=== PATIENT | female | born 1955 | race Caucasian/White ===

== ENCOUNTER 2018-09-11 09:38 | Outpatient (CLI) | payer MEDICARE, OTHER ==
--- NOTE | 2018-09-11 10:04 | RAD ---
EXAM: Abdomen one view: HISTORY: Renal calculi COMPARISON: CT, 08/25/2018 FINDINGS: No evidence for large or small bowel obstruction. No free intraperitoneal air . Large irregular left renal calculus measuring 1.6 x 2.3 cm. IMPRESSION: Large left renal calculus.
[2018-09-11 10:39] LABS: Bilirubin Negative (Negative); Blood, Urine Moderate (Negative); Clarity CLOUDY (Clear); Glucose, Urine (Dipstick) 100 mg/dL (Negative); Leukocyte Small (Negative); Nitrite Negative (Negative); Protein, Urine (Dipstick) Trace mg/dL (Neg-Trace); Urobilinogen 0.2 mg/dL (0.2-1.0)
[2018-09-11 10:40] LABS: Hemoglobin A1c 8.5 % (4.0-6.0)
[2018-09-11 10:41] LABS: Bacteria/HPF None Seen HPF (None Seen); Hyaline Casts/LPF 4-6 HYALINE CAST LPF (0-3 Hyaline); Pathc Cast-AUWi Flag 1.08 (0-2.49); RBC/HPF 21-50 HPF (0-3)
[2018-09-11 10:52] LABS: Anion Gap 13 mmol/L (10-20); BUN (Urea Nitrogen) 17 mg/dL (9.8-20.1); Calc. Creatinine Clearance 0 mL/min (70-130); Calcium 9.8 mg/dL (7.8-10.44); Carbon Dioxide 24 mmol/L (23-31); Chloride 104 mmol/L (98-107); Estimated GFR-MDRD 45; Glucose 236 mg/dL (80-115); Potassium 3.9 mmol/L (3.5-5.1); Sodium 137 mmol/L (136-145); Uric Acid 5.7 mg/dL (2.6-6.0)
== END 2018-09-11 09:39 | disposition home or self-care (01) ==
LOC: RAD 09:38
PROVIDERS: ATTEND Urology
DX: N20.0 Calculus of kidney (principal); G89.29 Other chronic pain; M54.5 Low back pain; E11.9 Type 2 diabetes mellitus without complications
CPT/HCPCS: 74018; 80048; 81001; 83036; 83970; 84550; 87086

== ENCOUNTER 2018-10-04 09:30 | Inpatient (IN) | payer MEDICARE ==
[2018-10-17] MEDS ORDERED: Sodium Chloride 0.9% 10 ML ONE (12:56)
[2018-10-17] MEDS ORDERED: Dextrose 50% Abboject 50 ML SYRINGE SLOW IVP PRN (12:59)
[2018-10-17] MEDS ORDERED: diphenhydrAMINE 50 MG/ML VIAL IVP PRN (12:59)
[2018-10-17] MEDS ORDERED: Dextrose 5% in Water 1,000 ML IV PRN (12:59)
[2018-10-17] MEDS ORDERED: Morphine 4 MG/ML VIAL SLOW IVP PRN (12:59)
[2018-10-17] MEDS ORDERED: Mag-Al 1200 mg/1200 mg/30 ML UDCUP PO PRN (12:59)
[2018-10-17] MEDS ORDERED: hydrALAZINE 20 MG/ML VIAL SLOW IVP PRN ×2 (12:59)
[2018-10-17] MEDS ORDERED: Bisacodyl 10 MG SUPP PR PRN (12:59)
[2018-10-17] MEDS ORDERED: HYDROcodone/Acetaminophen 5/325 mg Tablet PO PRN ×2 (12:59)
[2018-10-17] MEDS ORDERED: Promethazine HCl 25 MG SUPP PR PRN (12:59)
[2018-10-17] MEDS ORDERED: traMADol HCl 50 MG TAB PO PRN (13:08)
[2018-10-17] MEDS: Morphine 4 MG/ML VIAL SLOW IVP PRN ×3 (13:57→21:06)
[2018-10-17] MEDS: Insulin Regular 300 UNITS/3 ML VIAL SC PRN ×2 (14:06→17:25)
[2018-10-17 14:47] LABS: #Lymphocytes 0.9 thou/uL (1.20-3.40); #Monocytes 0.3 thou/uL (0.11-0.59); #Neutrophils 7.5 thou/uL (1.40-6.50); %Basophils 0.2 % (0.0-1.0); %Eosinophils 0.5 % (0.0-10.0); %Lymphocytes 10.2 % (21.0-51.0); %Monocytes 3.1 % (0.0-10.0); Hemoglobin 13.7 g/dL (12.0-16.0); Mean Corpuscular HGB CONC 32.9 g/dL (32.0-36.0); Mean Corpuscular Hemoglobin 28.2 pg (27.0-31.0); Mean Corpuscular Volume 85.7 fL (78.0-98.0); Mean Platelet Volume 8.4 fL (7.4-10.4); Platelet Count 253 thou/uL (130-400); RBC Distribution Width 13.1 % (11.5-14.5); Red Blood Cell (RBC) Count 4.88 mill/uL (4.20-5.40); White Blood Cell (WBC) Count 8.7 thou/uL (4.8-10.8)
[2018-10-17] MEDS: Sodium Chloride 0.9% 1,000 ML IV SCH (15:00)
--- NOTE | 2018-10-17 15:01 | CON ---
DATE OF CONSULTATION: PRIMARY CARE: Dr. Karime Urbina. HISTORY OF PRESENT ILLNESS: Ms. Ayala is a 62-year-old female, G1, P1, referred for renal lithiasis with history of chronic mid bilateral lower abdominal discomfort for years. She has had back pain, surgery back in 1993, typically ambulates with a cane. History of IgM deficiency has propensity for recurrent respiratory infections per the patient. She underwent workup for her back pain, demonstrating incidental stone, which prompted CT by Primary Care. CT demonstrated a large left stone burden, dimensions as below. She underwent cardiology workup, stress test negative, presents for percutaneous nephrolithotomy. She underwent percutaneous access earlier today, however, this is suboptimal access. I informed the patient that we will need a new access tomorrow, which we will attempt to place intraoperatively. Challenging nature providing antibiotic therapy to this patient as she has multiple allergies, most of antibiotics cause nausea. She states that she has had left flank pain with the percutaneous access; however, is agreed to leave it in situ for now. She does not desire further intervention today. PAST MEDICAL HISTORY: Includes; 1. Diabetes. 2. Hyperlipidemia. 3. Hypertension. 4. Hypothyroidism. 5. Restless legs. 6. Selective IgM deficiency. 7. Recurrent respiratory infections. 8. Neuropathy. 9. GERD. 10. Depression. 11. Anxiety. SURGICAL HISTORY: 1. Tonsillectomy. 2. in 1978. 3. Back surgery in 1993. 4. Bunionectomy in 1999. 5. Umbilical hernia repair in 2002. 6. Bilateral wrist repair, three finger surgery in 2016. FAMILY HISTORY: Positive for colon cancer. SOCIAL HISTORY: Former smoker, quit years ago. Previous recreational drug use in the 70s, marijuana. Denies IV drug abuse. ALLERGIES: AZITHROMYCIN, CAUSES NAUSEA; PENICILLIN, CHILDHOOD REACTION; CEFACLOR, CAUSES RASH; BIAXIN, CAUSES RASH AND SEVERE NAUSEA. CURRENT MEDICATIONS: Include; 1. Atorvastatin. 2. Biotene. 3. Dulcolax. 4. Ciprofloxacin 400 mg IV on-call. 5. She did receive 500 of Levaquin just now. 6. Colace 100 mg b.i.d. 7. Escitalopram 40 mg one p.o. daily. 8. Pepcid. 9. Neurontin 200 mg. 10. Hydralazine p.r.n. 11. She is on an insulin injection b.i.d. 12. Levothyroxine. 13. Loratadine. 14. Morphine 2-4 mg. 15. Pantoprazole, Protonix. 16. Promethazine. 17. Tramadol 50 mg one p.o. t.i.d. p.r.n. 18. Zolpidem. PHYSICAL EXAMINATION: VITAL SIGNS: Stable. GENERAL: The patient currently appears somewhat groggy as she recently came back from Interventional Radiology, has nausea. HEENT: Grossly unremarkable. HEART: Regular rate. LUNGS: Clear. ABDOMEN: Morbidly obese, protuberant. No rigidity. No rebound. Left percutaneous access is secured to her back. NEUROLOGIC: No gross focal deficits; however, she does ambulate with a cane due to chronic right groin discomfort. EXTREMITIES: No cyanosis, clubbing, or edema. No calf tenderness. : Demonstrates severe atrophic vaginitis. PERTINENT LABORATORY DATA: Hemoglobin A1c of 8.5. White count 6, hemoglobin 12 , and platelets 247. Coagulation profile is negative. Creatinine 1.0. Urine culture negative. Cardiac clearance is in chart with recent stress test demonstrating no evidence of perfusion defect, EF of 60%, Dr. Akins. CT demonstrating: Left renal pelvic stone measuring 2.5 x 1.3 x 2.7 cm, additional 2 lower pole to mid pole renal calculi, 8 mm in the mid pole, lower pole x3. Stones measuring 8 mm, 6 mm, 7 mm respectively. Stone to skin distance 13 cm. Stone is seen on scout sniper. IMPRESSION AND PLAN: Ms. Ayala is a 62-year-old female with history of large renal pelvic stone, lower pole stone moiety as above. As she had a percutaneous access today, in which the perc access is down the course of the ureter; however, it is a suboptimal access as it encroaches to infundibulum. She has had postoperative nausea as she has difficulty tolerating most antibiotics due to severe nausea. She requests ciprofloxacin instead of Levaquin. I will switch preop antibiotic regimen as she requests. She is n.p.o. after midnight for percutaneous access re-attempt, percutaneous nephrolithotomy, nephrostomy tube. As previous, we had discussed risks and complications of the procedure in detail including, but not limited to: Bleeding, pain, infection, sepsis, possible injury to adjacent structures such as major vasculature, bowel contents, spleen, need for blood transfusion, PE, DVT, perioperative morbidity and mortality, possible secondary procedure. She has been fully informed that she may require staged intervention due to lower pole stone moiety as well as it may be difficult with percutaneous access. Possible rare need for severe hemorrhage requiring embolization nephrectomy reviewed. She will be optimized, with IV fluids. We will treat her nausea with Phenergan and Zofran, ciprofloxacin on-call to OR. Type and cross for 2 units. Job ID: [id number] [facility]
[2018-10-17 15:06] LABS: Anion Gap 16 mmol/L (10-20); BUN (Urea Nitrogen) 22 mg/dL (9.8-20.1); Calc. Creatinine Clearance 79 mL/min (70-130); Calcium 10.2 mg/dL (7.8-10.44); Carbon Dioxide 23 mmol/L (23-31); Chloride 107 mmol/L (98-107); Estimated GFR-MDRD 48; Glucose 219 mg/dL (80-115); Potassium 3.9 mmol/L (3.5-5.1); Sodium 142 mmol/L (136-145)
[2018-10-17] MEDS: HumaLOG 300 UNITS/3 ML VIAL SC SCH (17:21)
[2018-10-17] MEDS: Promethazine 25 MG TAB PO PRN (17:22)
[2018-10-17] MEDS: Gabapentin 100 MG CAP PO SCH (20:44)
[2018-10-17] MEDS: Insulin Glargine 45 UNITS in Pre-Filled Syringe SC SCH (20:45)
[2018-10-17] MEDS: Docusate 100 MG CAP PO SCH (20:45)
[2018-10-17] MEDS: Famotidine/PF 20 mg/2ml Vial SLOW IVP SCH (20:45)
[2018-10-17] MEDS: rOPINIRole HCl 2 MG TAB PO SCH (20:46)
[2018-10-17] MEDS ORDERED: Zolpidem Tartrate 5 MG TAB PO SCH (21:00)
[2018-10-17] MEDS ORDERED: (Ropinirole Hcl [Ropinirole Er] 2 MG) PO SCH (21:00)
[2018-10-17] MEDS ORDERED: INSULIN DETEMIR 45 UNIT SQ SCH (21:00)
[2018-10-18 05:19] VITALS: BP 118/57
[2018-10-18] MEDS: Sodium Chloride 0.9% 1,000 ML IV SCH ×4 (05:35→20:50)
[2018-10-18] MEDS ORDERED: Midazolam HCl 2 mg/2 ml Vial ONE (06:59)
[2018-10-18] MEDS ORDERED: Fentanyl 250 MCG/5 ML VIAL ONE (06:59)
[2018-10-18] MEDS ORDERED: Iothalamate Meglumine 60% 50 ML VIAL FS ONE (07:14)
[2018-10-18 07:16] LABS: #Eosinphils 0.1 thou/uL (0.0-0.7); #Lymphocytes 1.5 thou/uL (1.20-3.40); #Monocytes 0.5 thou/uL (0.11-0.59); #Neutrophils 6.7 thou/uL (1.40-6.50); %Basophils 0.1 % (0.0-1.0); %Eosinophils 0.7 % (0.0-10.0); %Lymphocytes 16.7 % (21.0-51.0); %Monocytes 5.8 % (0.0-10.0); %Neutrophils 76.7 % (42.0-75.0); Hemoglobin 11.5 g/dL (12.0-16.0); Mean Corpuscular HGB CONC 33.4 g/dL (32.0-36.0); Mean Corpuscular Hemoglobin 28.5 pg (27.0-31.0); Mean Corpuscular Volume 85.4 fL (78.0-98.0); Mean Platelet Volume 7.9 fL (7.4-10.4); Platelet Count 211 thou/uL (130-400); RBC Distribution Width 12.9 % (11.5-14.5); Red Blood Cell (RBC) Count 4.04 mill/uL (4.20-5.40); White Blood Cell (WBC) Count 8.7 thou/uL (4.8-10.8)
[2018-10-18 07:34] LABS: Anion Gap 10 mmol/L (10-20); BUN (Urea Nitrogen) 15 mg/dL (9.8-20.1); Calc. Creatinine Clearance 81 mL/min (70-130); Calcium 9.1 mg/dL (7.8-10.44); Carbon Dioxide 26 mmol/L (23-31); Chloride 107 mmol/L (98-107); Estimated GFR-MDRD 50; Glucose 147 mg/dL (80-115); Potassium 3.8 mmol/L (3.5-5.1); Sodium 139 mmol/L (136-145)
[2018-10-18] MEDS: Bisoprolol Fumarate 5 MG TAB PO SCH (08:01)
[2018-10-18] MEDS: HumaLOG 300 UNITS/3 ML VIAL SC SCH ×3 (08:01→17:22)
[2018-10-18] MEDS: Levothyroxine 150 MCG TAB PO SCH (08:01)
[2018-10-18] MEDS: Atorvastatin Calcium 40 MG TAB PO SCH (08:01)
[2018-10-18] MEDS: Lactinex Tablet PO SCH (08:02)
[2018-10-18] MEDS: Insulin Glargine 45 UNITS in Pre-Filled Syringe SC SCH ×2 (08:02→20:49)
[2018-10-18] MEDS: Escitalopram Oxalate 20 mg Tablet PO SCH (08:02)
[2018-10-18] MEDS: Docusate 100 MG CAP PO SCH ×2 (08:02→20:48)
[2018-10-18] MEDS: Famotidine/PF 20 mg/2ml Vial SLOW IVP SCH ×2 (08:02→20:45)
[2018-10-18] MEDS: Stress 600 With Zinc 1 TAB PO SCH (08:02)
[2018-10-18] MEDS: Loratadine 10 MG TAB PO SCH (08:02)
[2018-10-18] MEDS ORDERED: BIOTIN 5 MG PO SCH (09:00)
[2018-10-18] MEDS ORDERED: CHROMIUM PO SCH (09:00)
[2018-10-18] MEDS ORDERED: Naloxone HCl 0.4 mg/ml Vial IV PRN (11:53)
[2018-10-18] MEDS ORDERED: diphenhydrAMINE 50 MG/ML VIAL IM PRN (11:53)
[2018-10-18] MEDS ORDERED: diphenhydrAMINE 50 MG/ML VIAL IVP PRN (11:53)
[2018-10-18] MEDS ORDERED: Zolpidem Tartrate 5 MG TAB PO PRN (11:53)
[2018-10-18] MEDS ORDERED: Morphine CADD 1 MG/ML CADD IVPB PRN (11:53)
[2018-10-18] MEDS ORDERED: diphenhydrAMINE 25 MG CAP PO PRN (11:53)
[2018-10-18] MEDS ORDERED: Communication Order-Pharmacy FS PRN (12:00)
[2018-10-18] MEDS ORDERED: Oxybutynin 5 MG TAB PO SCH (12:15)
[2018-10-18] MEDS ORDERED: Fentanyl 100 MCG/2 ML VIAL ONE ×2 (12:16→13:07)
[2018-10-18 13:00] LABS: #Eosinphils 0.1 thou/uL (0.0-0.7); #Monocytes 0.5 thou/uL (0.11-0.59); %Eosinophils 0.6 % (0.0-10.0); %Lymphocytes 7.7 % (21.0-51.0); %Monocytes 3.7 % (0.0-10.0); Mean Corpuscular HGB CONC 32.4 g/dL (32.0-36.0); Mean Corpuscular Hemoglobin 28.3 pg (27.0-31.0); Mean Corpuscular Volume 87.4 fL (78.0-98.0); Mean Platelet Volume 7.7 fL (7.4-10.4); Platelet Count 217 thou/uL (130-400); Red Blood Cell (RBC) Count 4.24 mill/uL (4.20-5.40); White Blood Cell (WBC) Count 12.5 thou/uL (4.8-10.8)
[2018-10-18] MEDS ORDERED: Morphine Sulfate 100 MG in Dextrose 5% in Water 98 ML IV SCH (13:05)
[2018-10-18 13:18] LABS: Anion Gap 11 mmol/L (10-20); BUN (Urea Nitrogen) 14 mg/dL (9.8-20.1); Calc. Creatinine Clearance 76 mL/min (70-130); Calcium 8.4 mg/dL (7.8-10.44); Carbon Dioxide 20 mmol/L (23-31); Chloride 110 mmol/L (98-107); Estimated GFR-MDRD 46; Glucose 202 mg/dL (80-115); Potassium 4.1 mmol/L (3.5-5.1); Sodium 137 mmol/L (136-145)
--- NOTE | 2018-10-18 13:18 | OP ---
DATE OF PROCEDURE: 10/18/2018 PREOPERATIVE DIAGNOSES: 1. A 62-year-old female with history of multiple left renal calculi: Renal pelvic stone measuring 2.7 x 2.5 x 1.3 cm left mid pole stone measuring 8 mm x 2 stones , left lower pole stone x3, 8 mm, 6 mm, 7 mm respectively. Hounsfield unit over 900 to 1000. 2. Morbid obesity. 3. History of diabetes. POSTOPERATIVE DIAGNOSES: 1. A 62-year-old female with history of multiple left renal calculi: Renal pelvic stone measuring 2.7 x 2.5 x 1.3 cm left mid pole stone measuring 8 mm x 2 stones , left lower pole stone x3, 8 mm, 6 mm, 7 mm respectively. Hounsfield unit over 900 to 1000. 2. Morbid obesity. 3. History of diabetes. PROCEDURE PERFORMED: Cystoscopy, left retrograde pyelogram, catheterization of the left ureter, left nephrostogram, nephroureteral Malecot 24-Vincentian catheter placement, left percutaneous nephrolithotomy, lithotripsy of large renal pelvic stone. ANESTHESIA: General. COMPLICATIONS: None apparent. DISPOSITION: To recovery room in stable condition. ESTIMATED BLOOD LOSS: About 3 to 500 mL. IV FLUIDS: 1800 mL. INTRAOPERATIVE FINDINGS: Very dense left renal pelvic stone. INDICATIONS FOR PROCEDURE AND HISTORY: Ms. Ayala is a 62-year-old pleasant female with history of morbid obesity, chronic lower back pain, diabetes, selective IgM deficiency, presented for evaluation of large left renal pelvic stone. She underwent cardiac clearance and presents today for left percutaneous nephrolithotomy of her large renal pelvic stone. We had discussed various options including ESWL, ureteroscopy, laser lithotripsy, PCNL. Given significant stone burden, density , I advised regarding PCNL. Other options were also discussed and offered and she desired to proceed with percutaneous nephrolithotomy. She is in full understanding that she will require likely stage intervention given the stone size, location, her body habitus, and stone moiety. Risks and complications including, but not limited to: Bleeding, pain, infection, sepsis, injury to adjacent organ such as bowel contents, spleen, major vasculature, infection, pneumonia, PE, DVT, perioperative morbidity, mortality, possible intractable bleeding requiring renal artery embolization, nephrectomy. Questions were encouraged and answered and she desired to proceed. DESCRIPTION OF PROCEDURE: After an informed consent was signed, the patient was taken to the operating room, placed in a dorsal lithotomy position with the genital area prepped and draped in the usual surgical sterile fashion. The patient was provided IV antibiotics. Bilateral ELIAS hose SCDs placed. After general endotracheal anesthesia was administered, the patient was intubated, broad- spectrum antibiotics provided and placed in dorsal lithotomy position. We performed the cystoscopy first as her pre-existing nephroureteral access was suboptimal. A 21-Vincentian cystoscope was utilized for cystoscopy, which demonstrated normal bladder mucosa. The UOs were identified in normal anatomical location. An open-ended catheter was utilized to intubate the left UO, and we performed the retrograde pyelogram, which demonstrated the previously placed nephroureteral tube in the distal ureter opacified the collecting system. Open-ended catheter was passed to the level of the proximal ureter, left in situ and a Artis catheter was placed, 20-Vincentian 10 mL, and the open-ended catheter was sutured to her Artis, so we may perform a retrograde pyelogram intraoperatively. Subsequently, we transitioned the patient on OSI table in a prone position with all pressure points padded and protected at all times. Dr. Clark then came in and took the old nephrostomy access out and we performed retrograde pyelogram concomitantly while opacifying the collecting system and obtained a new access. Due to a large renal pelvic stone causing partial obstruction of her calices, we were only able to initially opacify an upper calyx, which is suboptimal due to proximity of the spleen and the lower pole anterior calyceal stone and anterior mid pole calyx. As these were not ideal for percutaneous approach for the renal pelvic stone, we further opacified dilating her collecting system in a retrograde manner, and subsequently was able to opacify a posterior mid pole calyx. Dr. Clark obtained the access. Please see his operative note for further details. I took over the case once the two wires down the ureter to the level of the bladder was placed in situ. A NephroMax balloon dilator 30-Vincentian balloon was placed under fluoroscopic guidance just proximal to the level of the stone. Balloon dilatation was observed intraoperatively under fluoroscopic guidance. After appropriate dilatation, a 30-Vincentian clear nephro sheath was then placed over the inflating balloon. Balloon was then subsequently deflated and nephroscopy was performed. The stone was visualized; however, there was some mucosal overgrowth and there was surrounding parenchyma. We appeared to be in the mid pole where she does have those 8 mm stones. I extracted these with atraumatic graspers. Subsequently, I was able to visualize the stone; however, the angled was challenging. In a nontraumatic fashion, we engaged the stone with a clear sheath. Using a [employer] pneumatic and ultrasonic probe, we lithotripsied the stone and evacuated them. The stone was very dense in nature. It took quite a bit of time to laser the stone; however, we were able to make the progress and lithotripsy the renal pelvic stone entirely. There were some fragments that were left and we extracted these. My new stone fragments did migrate to the UPJ, we were able to basket and grasp these with nontraumatic graspers. There were minute stone fragments that were too small to basket or grab and we did make clearance of the large renal pelvic stone. Some of the renal pelvic moiety does have a limb of the stone traversing into the mid pole. I was able to see the edge of it; however, given the angle and oozing from the mucosa, I was unable to extract or laser lithotripsy, a residual stone burden, I believe in the mid pole. As we did make progress of her renal pelvic stone, decision was made to terminate the case as the residual stones were not amenable to treating in this treatment with this percutaneous access. With the clear sheath in place, we placed a 24-Vincentian re- entry Malecot nephroureteral tube. This was deployed with a Malecot in the renal pelvis. Antegrade nephrostogram demonstrated no significant extravasation of the contrast and contrast was seen down the course of the ureter. Subsequently, we removed the clear sheath, all wires. The nephrostomy tube was sutured to skin using 0 silk. Attached to gravity bag. The patient was extubated, transported to the recovery room in stable condition. Job ID: [id number] [facility]
[2018-10-18] MEDS ORDERED: Furosemide 20 MG/2 ML VIAL ONE (13:54)
[2018-10-18] MEDS: Albuterol Sulfate 2.5 mg/3 ml Neb NEB SCH ×2 (14:05→18:18)
--- NOTE | 2018-10-18 14:10 | RAD ---
SINGLE VIEW CHEST: Date: 10/18/18 COMPARISON: None. HISTORY: Status post PCNL. FINDINGS: Single view of the chest shows normal sized cardiomediastinal silhouette. There is bilateral perihila r fullness. There is no evidence of consolidation, mass, pneumothorax, or pleural effusion. IMPRESSION: No evidence of acute cardiopulmonary disease. POS: CET
--- NOTE | 2018-10-18 14:28 | SPC ---
EXAM: Antegrade pyelogram and nephrostomy tract dilatation PROVIDED CLINICAL HISTORY: Left renal calculi. TECHNIQUE: After informed consent was obtained, the hip patient was placed on the operating room table in the pr one position. General endotracheal anesthesia was performed by the anesthesiology department. The existing left nephroureteral catheter and surrounding area were meticulously prepped and draped in us ua sterile fashion. A nephrostogram was obtained through the existing left nephroureteral catheter after the catheter was withdrawn. CT exam performed one day ago demonstrated that the catheter traversed a posterior calyx and entered an anterior calyx. The catheter was withdrawn and attempts to access the existing p osterior calyx access was unsuccessful. As result, the catheter was removed, and then the collecting system was distended via the retrograde catheter. A posterior mid calyx was identified. Ac cess via the posterior calyx with a 22-gauge Chiba needle was performed. Contrast injection confirms placement in the calyx. The needle was exchanged over a 0.018 inch guidewire for a 6 [place] AccuStick sheath with stiff inner cannula and dilator. Contrast injection confirms placement within the collecting system and proximal ureter. The AccuStick sheath was exchanged over a 0.035 inch Amplatz guidewire for an 8 [place] followed by 10 [place] tissue dilators, and a dual lumen 10 [place] catheter was placed into the proximal ureter. A second 0.035 inch Amplatz guidewire was placed. Catheter was removed, and nephrostomy tract dilatatio n was performed with a 30 [place] nephrostomy tract dilatation balloon. A 30 [place] sheath was placed. The nephroscope was placed by Dr. Chatman, and the calculus was visualized. Nephrolithoto my was then performed by Dr. Chatman. At the termination of the procedure, a large caliber catheter was placed in the right renal collecting system, and contrast injection confirms placement. Fluoroscopy: Total fluoroscopy time is 17 minutes with total dose of 560 mGy. IMPRESSION: 1. Left renal calculi with staghorn type calculus in the left renal pelvis. 2. Technically successful left renal collecting system access via a posterior calyx with successful p lacement of guidewires into the distal left ureter. 3. Final provided image demonstrates a large caliber catheter serving as a nephrostomy tube within th e left renal collecting system with tip in the region of the left renal pelvis.
[2018-10-18] MEDS ORDERED: Iopamidol 300 61% 100 ML VIAL FS ONE (15:17)
[2018-10-18] MEDS: Oxybutynin 5 MG TAB PO SCH ×2 (15:51→20:49)
--- NOTE | 2018-10-18 16:23 | PDOC.FPRHP ---
- History of Present Illness History of Present Illness: CONSULT NOTE 62 yo F with PMH IDDM2, HTN, selective IgM def, hypothyroid was admitted for large nephrolithiasis. She just returned from PACU from presumed percutaneous nephrolithotomy. Op note has not yet resulted. She denies any current nausea. She recently received morphine and that has helped her pain. She just feels tired and thirsty. - Allergies/Adverse Reactions Allergies Allergy/AdvReac Type Severity Reaction Status Date / Time azithromycin [From Zithromax] Allergy Verified 10/16/18 12:09 cefaclor [From Ceclor] Allergy Verified 10/16/18 12:09 ciprofloxacin [From Cipro] Allergy GI UPSET Verified 10/17/18 08:11 clarithromycin [From Biaxin] Allergy Verified 10/16/18 12:09 hydrocodone Allergy extemee Verified 10/17/18 12:51 nausea levofloxacin [From Levaquin] Allergy extreme Verified 10/17/18 12:50 nausea Penicillins Allergy extreme Verified 10/17/18 12:50 nausea - Home Medications Medication Instructions Recorded Confirmed Type Agilease 2 tab PO DAILY 10/16/18 10/17/18 History Alpha Lipoic Acid 30 mg PO DAILY 10/16/18 10/17/18 History Atorvastatin Calcium [Lipitor] 40 mg PO DAILY 10/16/18 10/17/18 History Bifidobacterium Infantis 1 capsule PO DAILY 10/16/18 10/17/18 History [Digestive Probiotic] Biotin [Meribin] 5 mg PO DAILY 10/16/18 10/17/18 History Bisoprolol Fumarate [Zebeta] 5 mg PO DAILY 10/16/18 10/17/18 History Cromium 200 mcg PO DAILY 10/16/18 10/17/18 History Escitalopram Oxalate 40 mg PO DAILY 10/16/18 10/17/18 History Gabapentin 200 mg PO HS 10/16/18 10/17/18 History Insulin Aspart [Novolog Flexpen] 15 unit SQ ASDIR 10/16/18 10/17/18 History Insulin Detemir [Levemir Flextouch] 45 unit SQ BID 10/16/18 10/17/18 History Levothyroxine [Synthroid] 150 mcg PO DAILY 10/16/18 10/17/18 History Loratadine [Claritin] 10 mg PO DAILY 10/16/18 10/17/18 History Mv-Mn/Folic Acid/Vit K/[id number] 1 each PO DAILY 10/16/18 10/17/18 History [Alive Once Daily Women 50 Plus] Pantoprazole [Protonix] 40 mg PO DAILY 10/16/18 10/17/18 History Vitamin B Complex [B Complex] 1 tablet PO DAILY 10/16/18 10/17/18 History Zolpidem Tartrate [Ambien] 5 mg PO HS 10/16/18 10/17/18 History rOPINIRole HCl [Ropinirole ER] 2 mg PO HS 10/16/18 10/17/18 History traMADol HCl [Tramadol HCl] 50 mg PO TID PRN 10/16/18 10/17/18 History - History PMHx: IDDM2, HTN, HLD, hypothyroid, RLS, selective IgM deficiency, GERD, anxiety , depression, neuropathy PSHx: tonsillectomy, 1978, back surgery 1993, bunionectomy 1999, umbilical hernia repair 2002, bilateral wrist repair, 3 trigger finger release 2015 FHx: DM, CAD in multiple family members. Sister, colon cancer. Social: Denies tobacco use now or in past. Denies alcohol or drug use. - Review of Systems General: reports: fatigue. denies: fever/chills Respiratory: denies: cough, shortness of breath Cardiovascular: denies: palpitation, edema Gastrointestinal: denies: nausea, vomiting, diarrhea Genitourinary: denies: incontinence, dysuria Skin: denies: rashes, lesions Musculoskeletal: reports: pain, tenderness Neurological: denies: numbness, weakness Psychological: reports: anxiety, depression - Vital signs BP: 127/70 HR: 83 RR: 18 Pox: 95% on RA Wt: 98 kg - Physical Exam Constitutional: NAD, awake, alert and oriented, well developed (obese) HEENT: normocephalic and atraumatic, grossly normal vision, grossly normal hearing, MMM Heart: RRR, normal S1/S2, no murmurs/rubs/gallops, no edema Lungs: CTAB, no respiratory distress Abdomen: soft, non-tender -Musculoskeletal: bandages in place on lower back Neurological: no focal deficit Skin: good turgor Heme/Lymphatic: no unusual bruising or bleeding Psychiatric: normal mood and affect FMR H&P: Results - Labs Result Diagrams: 10/19/18 04:29 10/19/18 04:29 Lab results: WBC 12.5 thou/uL (4.8-10.8) H 10/18/18 12:52 Hgb 12.0 g/dL (12.0-16.0) 10/18/18 12:52 Hct 37.0 % (36.0-47.0) 10/18/18 12:52 MCV 87.4 fL (78.0-98.0) 10/18/18 12:52 Plt Count 217 thou/uL (130-400) 10/18/18 12:52 Neutrophils % 88.0 % (42.0-75.0) H 10/18/18 12:52 Sodium 137 mmol/L (136-145) 10/18/18 12:52 Potassium 4.1 mmol/L (3.5-5.1) 10/18/18 12:52 Chloride 110 mmol/L (98-107) H 10/18/18 12:52 Carbon Dioxide 20 mmol/L (23-31) L 10/18/18 12:52 BUN 14 mg/dL (9.8-20.1) 10/18/18 12:52 Creatinine 1.18 mg/dL (0.6-1.1) H 10/18/18 12:52 Glucose 202 mg/dL (80-115) H 10/18/18 12:52 Calcium 8.4 mg/dL (7.8-10.44) 10/18/18 12:52 FMR H&P: A/P - Problem List (1) Nephrolithiasis Current Visit: Yes Status: Acute (2) Diabetes Current Visit: Yes Status: Chronic Code(s): E11.9 - TYPE 2 DIABETES MELLITUS WITHOUT COMPLICATIONS (3) HTN (hypertension) Current Visit: Yes Status: Chronic Code(s): I10 - ESSENTIAL (PRIMARY) HYPERTENSION (4) HLD (hyperlipidemia) Current Visit: Yes Status: Chronic Code(s): E78.5 - HYPERLIPIDEMIA, UNSPECIFIED (5) Hypothyroid Current Visit: Yes Status: Chronic Code(s): E03.9 - HYPOTHYROIDISM, UNSPECIFIED (6) RLS (restless legs syndrome) Current Visit: Yes Status: Chronic (7) Selective IgM deficiency Current Visit: Yes Status: Chronic Code(s): D80.4 - SELECTIVE DEFICIENCY OF IMMUNOGLOBULIN M [IGM] (8) GERD (gastroesophageal reflux disease) Current Visit: Yes Status: Chronic Code(s): K21.9 - GASTRO-ESOPHAGEAL REFLUX DISEASE WITHOUT ESOPHAGITIS (9) Neuropathy Current Visit: Yes Status: Chronic Code(s): G62.9 - POLYNEUROPATHY, UNSPECIFIED (10) Anxiety Current Visit: Yes Status: Chronic Code(s): F41.9 - ANXIETY DISORDER, UNSPECIFIED - Plan 62 yo F is admitted to urology for large nephrolithiasis and we are consulted for medical management. Nephrolithiasis, POD #0 s/p percutaneous nephrolitotomy - Urology managing - Patient on cipro IDDM2 - continue home insulin regimen when patient tolerating PO intake - Takes levemir 45u BID, Novolog 15, 15, 20 units with meals - A1c 8.5 - will monitor accuchecks and adjust as needed HTN - Home bisoprolol continued - pt reports her PCP was trying to transition to toher medication but pt has been taking bisoprolol only for past couple weeks CKD3 - at baseline, avoid nephrotoxic medications HLD - continue atorvastatin Hypothyroid - continue synthroid RLS - continue home ropinirole, ambien Depression/anxiety - continue home escitalopram GERD - continue home protonix Chronic back pain - takes tramadol at home, inpatient pain management per urology FMR H&P: Upper Level - Plan Date/Time: 10/18/18 [id number] I, [], have evaluated this patient and agree with findings/plan as outlined by internet programmer resident. Pertinent changes/additions are listed here. Addendum - Attending - Attending Attestation Date/Time: 10/19/18 1379 I personally evaluated the patient and discussed the management with Dr. Morse on 10/18. I agree with the History, Examination, Assessment and Plan documented above with any addition or exceptions noted below. Manage comorbidities, likely just o/n stay in [facility].
[2018-10-18] MEDS: Acetaminophen 1,000 MG in Premix Bag 1 BAG IVPB SCH (18:10)
[2018-10-18] MEDS: traMADol HCl 50 MG TAB PO PRN (20:37)
[2018-10-18] MEDS: Gabapentin 100 MG CAP PO SCH (20:45)
[2018-10-18] MEDS: rOPINIRole HCl 2 MG TAB PO SCH (20:49)
[2018-10-19] MEDS: Albuterol Sulfate 2.5 mg/3 ml Neb NEB SCH ×4 (00:03→18:31)
[2018-10-19 04:37] LABS: #Monocytes 0.6 thou/uL (0.11-0.59); %Basophils 0.1 % (0.0-1.0); %Eosinophils 0.3 % (0.0-10.0); %Lymphocytes 10.1 % (21.0-51.0); %Monocytes 6.5 % (0.0-10.0); Hemoglobin 11.3 g/dL (12.0-16.0); Mean Corpuscular Hemoglobin 29.4 pg (27.0-31.0); Mean Corpuscular Volume 86.3 fL (78.0-98.0); Mean Platelet Volume 7.5 fL (7.4-10.4); Platelet Count 233 thou/uL (130-400); Red Blood Cell (RBC) Count 3.83 mill/uL (4.20-5.40); White Blood Cell (WBC) Count 9.7 thou/uL (4.8-10.8)
[2018-10-19 05:00] LABS: Anion Gap 11 mmol/L (10-20); BUN (Urea Nitrogen) 11 mg/dL (9.8-20.1); Calc. Creatinine Clearance 75 mL/min (70-130); Calcium 8.3 mg/dL (7.8-10.44); Carbon Dioxide 23 mmol/L (23-31); Chloride 109 mmol/L (98-107); Estimated GFR-MDRD 45; Glucose 151 mg/dL (80-115); Potassium 3.7 mmol/L (3.5-5.1); Sodium 139 mmol/L (136-145)
[2018-10-19] MEDS ORDERED: Lidocaine Viscous Sol 2% 15 ml UD Cup SSW SCH (05:00)
[2018-10-19] MEDS: Oxybutynin 5 MG TAB PO SCH ×3 (05:35→20:30)
[2018-10-19] MEDS: Sodium Chloride 0.9% 1,000 ML IV SCH ×2 (05:36→13:05)
[2018-10-19] MEDS: Levothyroxine 150 MCG TAB PO SCH ×2 (06:01→20:32)
--- NOTE | 2018-10-19 06:34 | PDOC.FM ---
- Subjective Subjective: Denies nausea, vomiting since being on Cipro. Reports throat irritation and pain. Had a fever overnight. Says she did not sleep well last night and feels tired. - Objective Vital Signs & Weight: Vital Signs (12 hours) Temp Pulse Ox 10/19/18 06:06 100.8 F H 10/19/18 03:44 95 10/19/18 03:34 100.5 F H 10/18/18 23:56 99.0 F 10/18/18 20:00 93 L 10/18/18 19:25 99.0 F Weight Weight 104.4 kg Most Recent Monitor Data Heart Rate from ECG 104 NIBP 104/52 NIBP BP-Mean 69 Respiration from ECG 18 SpO2 94 I&O: 10/17/18 10/18/18 10/19/18 06:59 06:59 06:59 Intake Total 750 1293 Output Total 1200 655 Balance -450 638 Result Diagrams: 10/19/18 04:29 10/19/18 04:29 Phys Exam - Physical Examination Constitutional: NAD Respiratory: clear to auscultation bilateral (exam limited due to body habitus) Cardiovascular: RRR, no significant murmur Gastrointestinal: soft, positive bowel sounds Musculoskeletal: no edema Neurological: non-focal Psychiatric: normal affect Skin: cap refill <2 seconds Dx/Plan (1) Nephrolithiasis Status: Acute (2) Diabetes Code(s): E11.9 - TYPE 2 DIABETES MELLITUS WITHOUT COMPLICATIONS Status: Chronic (3) HTN (hypertension) Code(s): I10 - ESSENTIAL (PRIMARY) HYPERTENSION Status: Chronic (4) HLD (hyperlipidemia) Code(s): E78.5 - HYPERLIPIDEMIA, UNSPECIFIED Status: Chronic (5) Hypothyroid Code(s): E03.9 - HYPOTHYROIDISM, UNSPECIFIED Status: Chronic (6) RLS (restless legs syndrome) Status: Chronic (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 Nephrolithiasis, POD #1 s/p percutaneous nephrolitotomy - Urology managing - Patient on cipro - repeat CT this am showed less stone burden IDDM2 - continue home insulin regimen when patient tolerating PO intake - Takes levemir 45u BID, Novolog 15, 15, 20 units with meals - A1c 8.5 - will monitor accuchecks, FBG this am 146 HTN - Home bisoprolol continued - pt reports her PCP was trying to transition to other medication but pt has been taking bisoprolol only for past couple weeks CKD3 - at baseline, avoid nephrotoxic medications HLD - continue atorvastatin Hypothyroid - continue synthroid RLS - continue home ropinirole, ambien Depression/anxiety - continue home escitalopram GERD - continue home protonix Chronic back pain - takes tramadol at home, inpatient pain management per urology Per urology, likely plan to transition to floor tomorrow. Will continue to monitor for fever, likely due to atelectasis but may consider CXR if recurs. Addendum - Attending - Attending Attestation Date/Time: 10/19/18 3087 I personally evaluated the patient and discussed the management with Dr. Morse I agree with the History, Examination, Assessment and Plan documented above with any addition or exceptions noted below. Consulted for medical management T2DM and HTN well controlled- continue current management Fever- normal WBC and on cipro. Most likely secondary to atelectasis- extensive discussion about sitting up and using IS multiple times per hour. If fever recurs will check CXR and procal.
--- NOTE | 2018-10-19 07:33 | PRG ---
DATE OF SERVICE: 10/19/2018 SUBJECTIVE: The patient is sleeping, easily arousable, Denies chills. Per nursing staff, the patient refused her breathingh treatment last night. OBJECTIVE: VITAL SIGNS: T-max of 100.8, blood pressure 102/54, heart rate 93- 104. I's and O's, 1293 in, output is 655. She is positive 600 mL. Nephrostomy tube , 80 mL. Artis, 575. Both caliber of the urine is sedrick red tinged to transparent red with no clots. HEART: Regular. LUNGS: Clear. ABDOMEN: Morbidly obese. Nephrostomy tube dressing changed. No significant flank ecchymosis. Dressing reapplied. PERTINENT LABORATORY DATA: White count 9.7, hemoglobin stable at 11.3, platelet 233. Creatinine 1.2, near her baseline. IMPRESSION: Ms. Ayala is a 62-year-old female with history of large left stone burden, postop day #1. 1. Left percutaneous nephrolithotomy. 2. Past medical history of diabetes. 3. IgM deficiency. 4. Chronic back pain. 5. History of recurrent respiratory infections. PLAN: The patient unable to tolerate Levaquin due to severe nausea, currently tolerating ciprofloxacin 400 mg IV without significant issues of nausea. We were able to make significant progress in her stone burden. However, she has residual stone burden in the lower pole. We will obtain a CT stone protocol staging today. Advised regarding aggressive IS breathing treatments as advised. PT has been ordered for walking program out of bed. Importance of increased activity, pulmonary toilet discussed with the patient in detail. Pending improvement of hematuria, clinical status, she was advised regarding cysto left stent, nephrostomy tube removal prior to discharge, perhaps Tuesday. Continue current management for now. The patient will most likely be able to transfer out of the step-down unit tomorrow to surgical floor. Appreciate [facility] following. Job ID: [id number] [facility]
[2018-10-19] MEDS ORDERED: Acetaminophen 500 MG TAB PO PRN (08:45)
--- NOTE | 2018-10-19 08:56 | CT ---
CT Stone Protocol History: Lithotripsy. Nephrostomy. Comparison: CT abdomen and pelvis August 25, 2018 Findings: Mild atelectasis both lung bases. No pericardial effusion. Nephroureteral catheter is situ with distal tip at the distal left ureter. The size of the pelvic sto ne has markedly decreased and rest of the pelvis with the dominant fragment measuring up to 1.3 cm, previously over 2.5 cm. A smaller 2 x 4, 4 x 5, and 4 x 4 ureter calculus sits at the interpolar and inferior left renal calyx. Noncontrast evaluation of the liver and spleen are unremarkable. High density layering contrast withi n the gallbladder from vicarious excretion. No significant perirenal hematoma. Small fat-containing umbilical hernia. Impression: Marked interval size decrease of the dominant left renal pelvic calculus with decrease nu mber of the inferior and interpolar collecting system smaller calculi.
[2018-10-19] MEDS: Stress 600 With Zinc 1 TAB PO SCH (09:47)
[2018-10-19] MEDS: traMADol HCl 50 MG TAB PO PRN (09:48)
[2018-10-19] MEDS: Escitalopram Oxalate 20 mg Tablet PO SCH (09:52)
[2018-10-19] MEDS: Atorvastatin Calcium 40 MG TAB PO SCH (09:52)
[2018-10-19] MEDS: Bisoprolol Fumarate 5 MG TAB PO SCH (09:52)
[2018-10-19] MEDS: Insulin Glargine 45 UNITS in Pre-Filled Syringe SC SCH ×2 (09:53→20:32)
[2018-10-19] MEDS: Loratadine 10 MG TAB PO SCH ×2 (09:53→20:31)
[2018-10-19] MEDS: Docusate 100 MG CAP PO SCH ×2 (09:53→20:30)
[2018-10-19] MEDS: Lactinex Tablet PO SCH (09:53)
[2018-10-19] MEDS: Famotidine/PF 20 mg/2ml Vial SLOW IVP SCH ×2 (09:53→20:30)
--- NOTE | 2018-10-19 10:28 | SPC ---
EXAM: Antegrade pyelogram and nephrostomy tract dilatation PROVIDED CLINICAL HISTORY: Left renal calculi. TECHNIQUE: After informed consent was obtained, the hip patient was placed on the operating room table in the pr one position. General endotracheal anesthesia was performed by the anesthesiology department. The existing left nephroureteral catheter and surrounding area were meticulously prepped and draped in us ua sterile fashion. A nephrostogram was obtained through the existing left nephroureteral catheter after the catheter was withdrawn. CT exam performed one day ago demonstrated that the catheter traversed a posterior calyx and entered an anterior calyx. The catheter was withdrawn and attempts to access the existing p osterior calyx access was unsuccessful. As result, the catheter was removed, and then the collecting system was distended via the retrograde catheter. A posterior mid calyx was identified. Ac cess via the posterior calyx with a 22-gauge Chiba needle was performed. Contrast injection confirms placement in the calyx. The needle was exchanged over a 0.018 inch guidewire for a 6 [place] AccuStick sheath with stiff inner cannula and dilator. Contrast injection confirms placement within the collecting system and proximal ureter. The AccuStick sheath was exchanged over a 0.035 inch Amplatz guidewire for an 8 [place] followed by 10 [place] tissue dilators, and a dual lumen 10 [place] catheter was placed into the proximal ureter. A second 0.035 inch Amplatz guidewire was placed. Catheter was removed, and nephrostomy tract dilatatio n was performed with a 30 [place] nephrostomy tract dilatation balloon. A 30 [place] sheath was placed. The nephroscope was placed by Dr. Chatman, and the calculus was visualized. Nephrolithoto my was then performed by Dr. Chatman. At the termination of the procedure, a large caliber catheter was placed in the right renal collecting system, and contrast injection confirms placement. Fluoroscopy: Total fluoroscopy time is 17 minutes with total dose of 560 mGy. IMPRESSION: 1. Left renal calculi with staghorn type calculus in the left renal pelvis. 2. Technically successful left renal collecting system access via a posterior calyx with successful p lacement of guidewires into the distal left ureter. 3. Final provided image demonstrates a large caliber catheter serving as a nephrostomy tube within th e left renal collecting system with tip in the region of the left renal pelvis. Transcribed Date/Time: 10/19/2018 10:28 AM
--- NOTE | 2018-10-19 10:28 | SPC ---
EXAM: Antegrade pyelogram and nephrostomy tract dilatation PROVIDED CLINICAL HISTORY: Left renal calculi. TECHNIQUE: After informed consent was obtained, the hip patient was placed on the operating room table in the pr one position. General endotracheal anesthesia was performed by the anesthesiology department. The existing left nephroureteral catheter and surrounding area were meticulously prepped and draped in us ua sterile fashion. A nephrostogram was obtained through the existing left nephroureteral catheter after the catheter was withdrawn. CT exam performed one day ago demonstrated that the catheter traversed a posterior calyx and entered an anterior calyx. The catheter was withdrawn and attempts to access the existing p osterior calyx access was unsuccessful. As result, the catheter was removed, and then the collecting system was distended via the retrograde catheter. A posterior mid calyx was identified. Ac cess via the posterior calyx with a 22-gauge Chiba needle was performed. Contrast injection confirms placement in the calyx. The needle was exchanged over a 0.018 inch guidewire for a 6 [place] AccuStick sheath with stiff inner cannula and dilator. Contrast injection confirms placement within the collecting system and proximal ureter. The AccuStick sheath was exchanged over a 0.035 inch Amplatz guidewire for an 8 [place] followed by 10 [place] tissue dilators, and a dual lumen 10 [place] catheter was placed into the proximal ureter. A second 0.035 inch Amplatz guidewire was placed. Catheter was removed, and nephrostomy tract dilatatio n was performed with a 30 [place] nephrostomy tract dilatation balloon. A 30 [place] sheath was placed. The nephroscope was placed by Dr. Chatman, and the calculus was visualized. Nephrolithoto my was then performed by Dr. Chatman. At the termination of the procedure, a large caliber catheter was placed in the right renal collecting system, and contrast injection confirms placement. Fluoroscopy: Total fluoroscopy time is 17 minutes with total dose of 560 mGy. IMPRESSION: 1. Left renal calculi with staghorn type calculus in the left renal pelvis. 2. Technically successful left renal collecting system access via a posterior calyx with successful p lacement of guidewires into the distal left ureter. 3. Final provided image demonstrates a large caliber catheter serving as a nephrostomy tube within th e left renal collecting system with tip in the region of the left renal pelvis. Transcribed Date/Time: 10/19/2018 10:28 AM
[2018-10-19] MEDS: HumaLOG 300 UNITS/3 ML VIAL SC SCH ×3 (10:58→15:54)
[2018-10-19] MEDS: Acetaminophen 1,000 MG in Premix Bag 1 BAG IVPB SCH (18:14)
[2018-10-19] MEDS: Gabapentin 100 MG CAP PO SCH (20:30)
[2018-10-19] MEDS: rOPINIRole HCl 2 MG TAB PO SCH (20:31)
[2018-10-19] MEDS: Promethazine 25 MG TAB PO PRN (23:24)
[2018-10-20] MEDS: Albuterol Sulfate 2.5 mg/3 ml Neb NEB SCH ×4 (00:14→19:11)
[2018-10-20] MEDS: Sodium Chloride 0.9% 1,000 ML IV SCH ×2 (03:51→05:47)
[2018-10-20 04:21] LABS: #Lymphocytes 0.8 thou/uL (1.20-3.40); #Monocytes 0.6 thou/uL (0.11-0.59); #Neutrophils 7.8 thou/uL (1.40-6.50); %Basophils 0.1 % (0.0-1.0); %Eosinophils 0.4 % (0.0-10.0); %Lymphocytes 8.3 % (21.0-51.0); %Monocytes 6.6 % (0.0-10.0); %Neutrophils 84.6 % (42.0-75.0); Hemoglobin 10.5 g/dL (12.0-16.0); Mean Corpuscular HGB CONC 33.9 g/dL (32.0-36.0); Mean Corpuscular Hemoglobin 29.6 pg (27.0-31.0); Mean Corpuscular Volume 87.4 fL (78.0-98.0); Mean Platelet Volume 7.5 fL (7.4-10.4); Platelet Count 217 thou/uL (130-400); Red Blood Cell (RBC) Count 3.56 mill/uL (4.20-5.40); White Blood Cell (WBC) Count 9.2 thou/uL (4.8-10.8)
[2018-10-20 04:42] LABS: Anion Gap 13 mmol/L (10-20); BUN (Urea Nitrogen) 9 mg/dL (9.8-20.1); Calc. Creatinine Clearance 99 mL/min (70-130); Calcium 8.5 mg/dL (7.8-10.44); Carbon Dioxide 23 mmol/L (23-31); Chloride 106 mmol/L (98-107); Estimated GFR-MDRD 59; Glucose 128 mg/dL (80-115); Potassium 3.8 mmol/L (3.5-5.1); Sodium 138 mmol/L (136-145)
[2018-10-20] MEDS: Oxybutynin 5 MG TAB PO SCH ×3 (05:47→20:37)
--- NOTE | 2018-10-20 06:26 | PDOC.FM ---
- Subjective Subjective: Ms. Ayala said she did not get out of bed at all yesterday. She said urology already talked to her about that this morning. She has eaten some pudding but notes her throat still feels a little sore. Denies fever/chills. Has not had BM yet but says she does not think she is constipated. - Objective Vital Signs & Weight: Vital Signs (12 hours) Temp Pulse Resp Pulse Ox 10/20/18 03:25 98.2 F 10/19/18 23:22 98.2 F 10/19/18 22:23 92 L 10/19/18 20:00 94 L 10/19/18 19:19 98.1 F 10/19/18 18:31 95 19 90 L Weight Weight 104.4 kg Most Recent Monitor Data Heart Rate from ECG 97 NIBP 115/57 NIBP BP-Mean 76 Respiration from ECG 13 SpO2 94 I&O: 10/18/18 10/19/18 10/20/18 06:59 06:59 06:59 Intake Total 750 1293 2502 Output Total 1200 655 650 Balance -834 035 7272 Result Diagrams: 10/20/18 03:48 10/20/18 03:48 Phys Exam - Physical Examination Constitutional: NAD HEENT: moist MMs, oral pharynx no lesions Respiratory: clear to auscultation bilateral (exam limited due to body habitus) Cardiovascular: RRR Gastrointestinal: soft, non-tender bandage in place on back Neurological: non-focal Psychiatric: normal affect Skin: normal turgor Dx/Plan (1) Nephrolithiasis Status: Acute (2) Diabetes Code(s): E11.9 - TYPE 2 DIABETES MELLITUS WITHOUT COMPLICATIONS Status: Chronic (3) HTN (hypertension) Code(s): I10 - ESSENTIAL (PRIMARY) HYPERTENSION Status: Chronic (4) HLD (hyperlipidemia) Code(s): E78.5 - HYPERLIPIDEMIA, UNSPECIFIED Status: Chronic (5) Hypothyroid Code(s): E03.9 - HYPOTHYROIDISM, UNSPECIFIED Status: Chronic (6) RLS (restless legs syndrome) Status: Chronic (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 Nephrolithiasis, POD #2 s/p percutaneous nephrolitotomy - Urology managing - Patient on cipro - repeat CT showed less stone burden IDDM2 - continue home insulin regimen, may hold mealtime insulin if not eating much, but continue levemir - Takes levemir 45u BID, Novolog 15, 15, 20 units with meals - A1c 8.5 - will monitor accuchecks, FBG this am 146 HTN - Home bisoprolol continued, has been held - pt reports her PCP was trying to transition to other medication but pt has been taking bisoprolol only for past couple weeks CKD3 - at baseline, avoid nephrotoxic medications HLD - continue atorvastatin Hypothyroid - continue synthroid RLS - continue home ropinirole, ambien Depression/anxiety - continue home escitalopram GERD - continue home protonix Chronic back pain - takes tramadol at home, inpatient pain management per urology Plan to move to floor today, transition orders already placed. Encouraged patient that she must ambulate, sit up in chair today. Addendum - Attending - Attending Attestation Date/Time: 10/20/18 0946 I personally evaluated the patient and discussed the management with Dr. Morse. I agree with the History, Examination, Assessment and Plan documented above with any addition or exceptions noted below. CXR this am shows volume overload. Stop IVF and give a dose of lasix. BP and blood sugars at goal. COntinue current treatment.
[2018-10-20 06:41] VITALS: BMI 37.0
[2018-10-20] MEDS ORDERED: Sodium Chloride 0.9% 1,000 ML IV SCH ×2 (07:21→10:28)
[2018-10-20] MEDS: HumaLOG 300 UNITS/3 ML VIAL SC SCH ×3 (07:54→18:19)
[2018-10-20] MEDS: Bisoprolol Fumarate 5 MG TAB PO SCH (07:55)
--- NOTE | 2018-10-20 08:51 | PRG ---
DATE OF SERVICE: 10/20/2018 SUBJECTIVE: The patient is doing okay, tolerating orals; however, appetite is somewhat poor, passes flatus. Denies chills. Pain adequately controlled. OBJECTIVE: VITAL SIGNS: She has been afebrile for 12 hours. T-max of 100.8, currently 98, saturation 95% on 3 L, blood pressure 120/55. P.o. intake 1360. GENERAL: The patient is in no acute distress. HEART: Regular rate. LUNGS: Left is somewhat clear. Right lower lobe, possible intermittent crackles. ABDOMEN: Morbidly obese. No rigidity. No rebound. Bowel sounds present. Nephrostomy tube dressing changed, pink-tinged. EXTREMITIES: No cyanosis, clubbing, or edema. Color of urine, sedrick tea colored in the Artis bag, urine output from the nephrostomy tube is pink, clearing of hematuria noted. PERTINENT LABORATORY DATA: White count 9.2, hemoglobin 10, platelets 217. Creatinine 0.9. Is and Os are 4320 in, 1230 out. She is positive 3 L. Nephrostomy tube output 640, Artis is 950. IMPRESSION AND PLAN: Ms. Ayala is a 62-year-old female postoperative day #2. 1. Left percutaneous nephrolithotomy. 2. History of diabetes. 3. History of IgM deficiency. 4. History of chronic back pain. 5. History of recurrent respiratory infection. She is hemodynamically stable, her hematuria component continues to improve. I expect mild decrease in hemoglobin to be somewhat delusional. She is positive 3 L. We will decrease her fluids to 60 mL an hour, encourage p.o. liquids. We will check PA lateral chest x-ray. Titrate O2 saturation. Pending review of chest x-ray. If the patient needs to be diuresed , we will provide Lasix. She is n.p.o. after midnight for cysto, left nephrostogram, ureteral stent placement. Job ID: [id number] [facility]
--- NOTE | 2018-10-20 09:10 | RAD ---
CHEST 1 VIEW: Date: 10/20/18 HISTORY: Dyspnea. Follow-up. COMPARISON: 10/18/18. FINDINGS: Cardiac silhouette is magnified by projection. Patient is slightly rotated rightward. Pulmonary vascu lature more engorged with patchy bilateral perihilar and bibasilar infiltrates, right greater than le ft. No evidence of pneumothorax. surveillance system monitor leads overlie the chest. IMPRESSION: Pulmonary edema. POS: JAMIE
[2018-10-20] MEDS: Atorvastatin Calcium 40 MG TAB PO SCH (09:55)
[2018-10-20] MEDS: Insulin Glargine 45 UNITS in Pre-Filled Syringe SC SCH ×2 (09:56→20:39)
[2018-10-20] MEDS: Docusate 100 MG CAP PO SCH ×2 (09:56→20:38)
[2018-10-20] MEDS: Escitalopram Oxalate 20 mg Tablet PO SCH (09:56)
[2018-10-20] MEDS: Lactinex Tablet PO SCH (09:56)
[2018-10-20] MEDS: Stress 600 With Zinc 1 TAB PO SCH (09:57)
[2018-10-20] MEDS: Famotidine/PF 20 mg/2ml Vial SLOW IVP SCH ×2 (09:57→20:38)
[2018-10-20] MEDS ORDERED: Furosemide 20 MG/2 ML VIAL SLOW IVP SCH ×2 (10:30→17:30)
[2018-10-20] MEDS ORDERED: Hydrocodone-Acetamin 15 ML UDCUP PO PRN ×2 (12:15→12:16)
[2018-10-20] MEDS: traMADol HCl 50 MG TAB PO PRN ×3 (15:43→20:36)
--- NOTE | 2018-10-20 17:56 | CON ---
DATE OF CONSULTATION: 10/20/2018 REASON FOR CONSULTATION: Heart failure. HISTORY OF PRESENT ILLNESS: Ms. Ayala is a very pleasant 62-year-old white female, who comes to the hospital with abdominal discomfort. She recently had a large renal pelvic stone and a lower pole stone moiety. She had percutaneous access on the ureters. She has been doing well until today. She was more short of breath. Chest x-ray showed a little bit of pulmonary edema, so she was given one dose of Lasix at 20 mg IV once and Cardiology is being consulted. PAST MEDICAL HISTORY: 1. Hypertension. 2. Anxiety and depression. 3. Hyperlipidemia. 4. Restless legs syndrome. 5. Thyroid disease. 6. Bronchial asthma. 7. Type 2 diabetes. 8. Kidney stones. SURGICAL HISTORY: 1. Tonsillectomy. 2. Laminectomy. 3. . 4. Hernia repair. FAMILY HISTORY: Mother with diabetes and stroke. SOCIAL HISTORY: No alcohol, tobacco, or drugs. ALLERGIES: BACTRIM. OUTPATIENT MEDICATIONS: Include; 1. Lexapro 20 mg 2 tablets a day. 2. Protonix. 3. Zolpidem. 4. Synthroid. 5. Ropinirole. 6. Atorvastatin. 7. Albuterol. 8. Levemir. 9. NovoLog. REVIEW OF SYSTEMS: A 12-point review of systems was done and was all negative unless stated in history of present illness. She admits to snoring. PHYSICAL EXAMINATION: VITAL SIGNS: Temperature 97.7, pulse 85, respiratory rate 20, saturating 94% on room air, blood pressure 101/51. GENERAL: Awake, alert, and oriented x3, in [id number] amount of pain, abdominal. HEENT: Normocephalic and atraumatic. NECK: Supple. LUNGS: Clear. CARDIOVASCULAR: S1 and S2. No S3 or S4. No murmurs. ABDOMEN: Tender, but no rebound or guarding. EXTREMITIES: 1+ edema. SKIN: Warm and dry. LABORATORY DATA: Laboratory work was reviewed. CBC and BNP were reviewed. Chest x-ray with some pulmonary edema. ASSESSMENT AND PLAN: [id number] diastolic heart failure. PLAN: We will give one more dose of IV Lasix 20 mg that should suffice. She seems very close to euvolemic. This should be enough as far as diuresis is concerned. Thank you for letting us to participate in the care of your patient. We will follow. Job ID: [id number]
[2018-10-20] MEDS: Morphine 2 MG/ML SYRINGE SLOW IVP PRN (18:42)
[2018-10-20] MEDS: Promethazine 25 MG TAB PO PRN (19:59)
[2018-10-20] MEDS: Gabapentin 100 MG CAP PO SCH (20:36)
[2018-10-20] MEDS: Levothyroxine 150 MCG TAB PO SCH (20:37)
[2018-10-20] MEDS: rOPINIRole HCl 2 MG TAB PO SCH (20:37)
[2018-10-20] MEDS: Loratadine 10 MG TAB PO SCH (20:38)
[2018-10-20] MEDS: Ondansetron PF 4 MG/2 ML Vial IVP PRN (23:42)
[2018-10-21] MEDS: Albuterol Sulfate 2.5 mg/3 ml Neb NEB SCH ×4 (01:02→18:36)
[2018-10-21] MEDS: Morphine 2 MG/ML SYRINGE SLOW IVP PRN ×2 (04:36→18:02)
[2018-10-21] MEDS: Ondansetron PF 4 MG/2 ML Vial IVP PRN (04:42)
[2018-10-21 05:12] LABS: #Eosinphils 0.1 thou/uL (0.0-0.7); #Monocytes 0.6 thou/uL (0.11-0.59); #Neutrophils 7.2 thou/uL (1.40-6.50); %Basophils 0.1 % (0.0-1.0); %Lymphocytes 11.2 % (21.0-51.0); %Monocytes 6.2 % (0.0-10.0); %Neutrophils 81.5 % (42.0-75.0); Mean Corpuscular Hemoglobin 27.5 pg (27.0-31.0); Mean Corpuscular Volume 85.8 fL (78.0-98.0); Mean Platelet Volume 7.4 fL (7.4-10.4); Platelet Count 231 thou/uL (130-400); RBC Distribution Width 12.7 % (11.5-14.5); White Blood Cell (WBC) Count 8.9 thou/uL (4.8-10.8)
[2018-10-21 05:37] LABS: Calcium 8.9 mg/dL (7.8-10.44); Chloride 102 mmol/L (98-107); Potassium 3.3 mmol/L (3.5-5.1); Sodium 140 mmol/L (136-145)
[2018-10-21 05:38] LABS: Glucose 90 mg/dL (80-115)
[2018-10-21 05:39] LABS: Anion Gap 11 mmol/L (10-20); Carbon Dioxide 30 mmol/L (23-31)
[2018-10-21 05:41] LABS: Calc. Creatinine Clearance 108 mL/min (70-130); Estimated GFR-MDRD 65
[2018-10-21 05:42] LABS: BUN (Urea Nitrogen) 9 mg/dL (9.8-20.1)
[2018-10-21] MEDS: Oxybutynin 5 MG TAB PO SCH ×3 (05:47→20:44)
--- NOTE | 2018-10-21 06:42 | PDOC.FM ---
- Subjective Subjective: Ms. Ayala reports she had nausea this morning, just received medication for it. She said she stood up yesterday but that was all her activity. Ate pudding but otherwise minimal food intake and now NPO for procedure today. Denies SOB or orthopnea. Reports some congestion. - Objective Vital Signs & Weight: Weight Weight 104.4 kg Most Recent Monitor Data Heart Rate from ECG 78 NIBP 117/54 NIBP BP-Mean 75 Respiration from ECG 19 SpO2 98 I&O: 10/19/18 10/20/18 10/21/18 06:59 06:59 06:59 Intake Total 1293 4230 1650 Output Total 655 1270 1825 Balance 638 2960 -175 Result Diagrams: 10/21/18 04:40 10/21/18 04:40 Phys Exam - Physical Examination Constitutional: NAD Respiratory: clear to auscultation bilateral (exam limited due to body habitus) Cardiovascular: RRR, no significant murmur Gastrointestinal: soft (obese), non-tender Musculoskeletal: no edema Neurological: non-focal Psychiatric: normal affect Skin: cap refill <2 seconds Dx/Plan (1) Nephrolithiasis Status: Acute (2) Diabetes Code(s): E11.9 - TYPE 2 DIABETES MELLITUS WITHOUT COMPLICATIONS Status: Chronic (3) HTN (hypertension) Code(s): I10 - ESSENTIAL (PRIMARY) HYPERTENSION Status: Chronic (4) HLD (hyperlipidemia) Code(s): E78.5 - HYPERLIPIDEMIA, UNSPECIFIED Status: Chronic (5) Hypothyroid Code(s): E03.9 - HYPOTHYROIDISM, UNSPECIFIED Status: Chronic (6) RLS (restless legs syndrome) Status: Chronic (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 Nephrolithiasis, POD #3 s/p percutaneous nephrolitotomy - Urology managing, plan for cystosocpy, L nephrostogram, and ureteral stent placement today - Patient on cipro - repeat CT showed less stone burden IDDM2 - continue home insulin regimen, may hold mealtime insulin if not eating much, but continue levemir - Takes levemir 45u BID, Novolog 15, 15, 20 units with meals - A1c 8.5 - will monitor accuchecks, FBG this am 88 HTN - Home bisoprolol continued, has been held - pt reports her PCP was trying to transition to other medication but pt has been taking bisoprolol only for past couple weeks Acute on chronic HFpEF - Cardiology consulted - IV lasix 20 x2 - continue to monitor I/Os Normocytic anemia - Hgb 11, will continue to monitor Hypokalemia - 3.3 today, will replace and recheck in am CKD3 - at baseline, avoid nephrotoxic medications HLD - continue atorvastatin Hypothyroid - continue synthroid RLS - continue home ropinirole, ambien Depression/anxiety - continue home escitalopram GERD - continue home protonix Chronic back pain - takes tramadol at home, inpatient pain management per urology Encouraged patient that she must ambulate, sit up in chair today. Urology plans for procedure today. Addendum - Attending - Attending Attestation Date/Time: 10/21/18 1451 I personally evaluated the patient and discussed the management with Dr. Morse. I agree with the History, Examination, Assessment and Plan documented above with any addition or exceptions noted below. Patient overall stable, continues to have some pain. She is undergoing repeat procedure with Urology today. We are consulted for medical mgmt. Monitoring fluid status and O2 requirements. BP at goal and we will continue to monitor her blood sugars. Further mgmt per primary team.
[2018-10-21] MEDS ORDERED: Potassium Chloride 20 MEQ TAB PO SCH (07:00)
[2018-10-21] MEDS: Bisoprolol Fumarate 5 MG TAB PO SCH (07:58)
[2018-10-21] MEDS: HumaLOG 300 UNITS/3 ML VIAL SC SCH ×3 (08:02→17:12)
[2018-10-21] MEDS: Famotidine/PF 20 mg/2ml Vial SLOW IVP SCH ×2 (08:02→20:42)
[2018-10-21] MEDS: Docusate 100 MG CAP PO SCH ×2 (08:02→20:41)
[2018-10-21] MEDS: Atorvastatin Calcium 40 MG TAB PO SCH (08:02)
[2018-10-21] MEDS: Escitalopram Oxalate 20 mg Tablet PO SCH (08:02)
[2018-10-21] MEDS: Insulin Glargine 45 UNITS in Pre-Filled Syringe SC SCH ×2 (08:03→20:43)
[2018-10-21] MEDS: Stress 600 With Zinc 1 TAB PO SCH (08:03)
[2018-10-21] MEDS: Lactinex Tablet PO SCH (08:03)
[2018-10-21] MEDS ORDERED: Dextrose 50% Abboject 50 ML SYRINGE ONE (08:06)
[2018-10-21] MEDS ORDERED: Fentanyl 100 MCG/2 ML VIAL ONE (09:40)
[2018-10-21] MEDS ORDERED: Iothalamate Meglumine 60% 50 ML VIAL FS ONE (09:44)
--- NOTE | 2018-10-21 10:41 | RAD ---
EXAM: Retrograde IVP HISTORY: Kidney stones COMPARISON: None FINDINGS/IMPRESSION: Limited intraoperative fluoroscopic views of a retrograde IVP were submitted for interpretation. The initial images shows a percutaneous nephrostomy tube with a portion a catheter extending down the left ureter. There is no evidence of hydronephrosis. No obvious filling defects ar e seen. The last image shows a double-J ureteral stent without a percutaneous nephrostomy tube.
[2018-10-21] MEDS ORDERED: PACU-Morphine 4MG/ML VIAL SLOW IVP PRN (10:58)
[2018-10-21] MEDS ORDERED: Promethazine HCl 25 MG/ML VIAL IM PRN (10:58)
[2018-10-21] MEDS ORDERED: Ondansetron HCl/PF 4 MG/2 ML Vial IVP PRN (10:58)
[2018-10-21] MEDS ORDERED: Promethazine HCl 25 MG/ML VIAL SLOW IVP PRN (10:58)
[2018-10-21] MEDS ORDERED: HYDROmorphone 2 MG/ML VIAL SLOW IVP PRN (10:58)
--- NOTE | 2018-10-21 11:14 | OP ---
DATE OF PROCEDURE: 10/21/2018 PREOPERATIVE DIAGNOSIS: History of large left renal stone burden, status post percutaneous nephrolithotomy. POSTOPERATIVE DIAGNOSIS: History of large left renal stone burden, status post percutaneous nephrolithotomy. PROCEDURE PERFORMED: Cystoscopy, left nephrostogram, nephrostomy tube removal, cystoscopy, left retrograde pyelogram, 6 x 26 double-J ureteral stent placement, Artis catheter replacement. ANESTHESIA: General. COMPLICATIONS: None apparent. DISPOSITION: To recovery room in stable condition. INDICATIONS FOR PROCEDURE AND HISTORY: Ms. Ayala is a 62-year-old female with history of very large stone burden, dense in nature, underwent PCNL. Her H and H have been stable, urine output pink, sedrick from the nephrostomy tube, presents for nephrostomy tube removal, nephrostogram, ureteral stent placement. Indications reviewed. Risks and complications including bleeding, pain, infection, injury to adjacent structures reviewed, and she desires to proceed. DESCRIPTION OF PROCEDURE: After an informed consent was signed, the patient was taken to the operating room, placed in a dorsal lithotomy position with the genital area prepped and draped in the usual surgical sterile fashion. We provided her morning ciprofloxacin dose prior to surgery. A left nephrostogram was performed demonstrating the left nephroureteral Malecot tube in good position. The hub was at the level of the infundibulum. Nephrostogram demonstrated no significant extravasation. At this time, we performed the cystoscopy and intubated the left ureteral orifice with an open-ended catheter. Retrograde pyelogram demonstrated patent ureter with no evidence of extravasation. A 0.35 Sensor wire was passed into level of the left lower pole. Nephrostomy tube was removed under fluoroscopic guidance. Inner stylet was placed prior to removal to decompress the Malecot component. At this time, a 6 x 26 double-J ureteral stent was passed and the proximal coil was within the lower pole and adequate redundancy in the bladder. An 18-Libyan 10 mL Artis catheter replaced and attached to gravity bag. She will transition back to the floor, we will discontinue her STATE DIRECTOR. She will be advised to be increasing her activity out of bed as she has been quite sedentary. Continue bilateral ELIAS hose SCDs. Cardiology following due to CHF exacerbation. Previously, did receive Lasix. We will continue to monitor her fluid status and provide further Lasix, if clinically indicated. Anticipate the patient maybe ready to be discharged tomorrow; however, she has had poor oral intake due to nausea. She has significant nausea at baseline for lot of medications as she is quite sensitive and has multiple allergies. Continue broad-spectrum antibiotics with ciprofloxacin. Aggressive pulmonary toilet. Job ID: [id number] MTDD
--- NOTE | 2018-10-21 14:57 | PDOC.CTH ---
Cardiology Progress Note - Subjective She underwent removal of nephrostomy tube and stent placement. She did well. breathing at baseline. - Objective Vital Signs Temp Pulse Resp Pulse Ox 10/21/18 08:00 94 L 10/21/18 07:45 99 10/21/18 07:41 82 12 99 10/21/18 07:25 98.6 F 10/21/18 04:00 98.9 F Weight 230 lb 2.601 oz 10/20/18 10/21/18 10/22/18 06:59 06:59 06:59 Intake Total 4230 2334 Output Total 1270 3675 Balance 2960 -1341 - Physical Examination General/Neuro: alert & oriented x3, NAD Neck: no JVD present Lungs: CTA, unlabored respirations Heart: RRR Abdomen: NT/ND Extremities: + edema B (trace) - Telemetry Telemetry Rhythm: NSR - Labs Result Diagrams: 10/21/18 04:40 10/21/18 04:40 - Assessment/Plan 1. Acute on chronic diastolic CHF, resolved. 2. Renal stones. PLAN: - Continue Current plan of care. - Replace K. - Will re evaluate in the morning.
[2018-10-21] MEDS: Loratadine 10 MG TAB PO SCH (20:42)
[2018-10-21] MEDS: Gabapentin 100 MG CAP PO SCH (20:42)
[2018-10-21] MEDS: Levothyroxine 150 MCG TAB PO SCH (20:43)
[2018-10-21] MEDS: rOPINIRole HCl 2 MG TAB PO SCH (20:43)
[2018-10-22] MEDS: Albuterol Sulfate 2.5 mg/3 ml Neb NEB SCH ×3 (00:29→13:29)
[2018-10-22] MEDS: Oxybutynin 5 MG TAB PO SCH (04:16)
[2018-10-22 05:10] LABS: #Eosinphils 0.2 thou/uL (0.0-0.7); #Lymphocytes 1.1 thou/uL (1.20-3.40); #Monocytes 0.5 thou/uL (0.11-0.59); #Neutrophils 5.6 thou/uL (1.40-6.50); %Basophils 0.5 % (0.0-1.0); %Eosinophils 2.9 % (0.0-10.0); %Lymphocytes 14.5 % (21.0-51.0); %Monocytes 6.8 % (0.0-10.0); %Neutrophils 75.4 % (42.0-75.0); Hemoglobin 10.8 g/dL (12.0-16.0); Mean Corpuscular HGB CONC 33.8 g/dL (32.0-36.0); Mean Corpuscular Hemoglobin 29.3 pg (27.0-31.0); Mean Corpuscular Volume 86.5 fL (78.0-98.0); Mean Platelet Volume 7.2 fL (7.4-10.4); Platelet Count 241 thou/uL (130-400); RBC Distribution Width 12.8 % (11.5-14.5); Red Blood Cell (RBC) Count 3.68 mill/uL (4.20-5.40); White Blood Cell (WBC) Count 7.4 thou/uL (4.8-10.8)
[2018-10-22 05:40] LABS: Anion Gap 12 mmol/L (10-20); BUN (Urea Nitrogen) 8 mg/dL (9.8-20.1); Calc. Creatinine Clearance 108 mL/min (70-130); Calcium 9.2 mg/dL (7.8-10.44); Carbon Dioxide 27 mmol/L (23-31); Chloride 103 mmol/L (98-107); Estimated GFR-MDRD 67; Glucose 73 mg/dL (80-115); Potassium 3.2 mmol/L (3.5-5.1); Sodium 139 mmol/L (136-145)
[2018-10-22] MEDS ORDERED: Potassium Chloride 20 MEQ TAB PO SCH (06:30)
--- NOTE | 2018-10-22 06:53 | PDOC.FM ---
- Subjective Subjective: Ms. Ayala has no new complaints today. She denies any nausea this morning. Denies difficulty breathing or SOB. Has not had BM but says she does not think she is constipated. - Objective Vital Signs & Weight: Vital Signs (12 hours) Temp Pulse Ox 10/22/18 04:00 98.6 F 10/22/18 00:00 99.5 F 10/21/18 20:00 99.7 F H 97 Weight Weight 102.1 kg Most Recent Monitor Data Heart Rate from ECG 85 NIBP 151/75 NIBP BP-Mean 100 Respiration from ECG 14 SpO2 96 I&O: 10/20/18 10/21/18 10/22/18 06:59 06:59 06:59 Intake Total 4230 2334 2110 Output Total 1270 1615 2200 Balance 2960 -1341 -90 Result Diagrams: 10/22/18 04:42 10/22/18 04:42 Phys Exam - Physical Examination Constitutional: NAD Respiratory: clear to auscultation bilateral Cardiovascular: RRR Gastrointestinal: soft (obese), non-tender, positive bowel sounds Musculoskeletal: no edema Neurological: non-focal Psychiatric: normal affect Skin: normal turgor Dx/Plan (1) Nephrolithiasis Status: Acute (2) Diabetes Code(s): E11.9 - TYPE 2 DIABETES MELLITUS WITHOUT COMPLICATIONS Status: Chronic (3) HTN (hypertension) Code(s): I10 - ESSENTIAL (PRIMARY) HYPERTENSION Status: Chronic (4) HLD (hyperlipidemia) Code(s): E78.5 - HYPERLIPIDEMIA, UNSPECIFIED Status: Chronic (5) Hypothyroid Code(s): E03.9 - HYPOTHYROIDISM, UNSPECIFIED Status: Chronic (6) RLS (restless legs syndrome) Status: Chronic (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 Nephrolithiasis, POD #1 s/p L uretera stent placement - Urology managing, jane in place - 10/18 had percutaneous nephrolithotomy - Patient on cipro IDDM2 - continue home insulin regimen, may hold mealtime insulin if not eating much, but continue levemir - Takes levemir 45u BID, Novolog 15, 15, 20 units with meals - A1c 8.5 - will monitor accuchecks, FBG this am 91 HTN - Home bisoprolol continued, doses have been held - pt reports her PCP was trying to transition to other medication but pt has been taking bisoprolol only for past couple weeks Acute on chronic HFpEF, stable - Per Cardiology, they are consulted - IV lasix 20 x2 - continue to monitor I/Os Normocytic anemia - Hgb 10.8, will continue to monitor Hypokalemia - Patient refused PO replacement yesterday and opted to eat a banana instead. Discussed and patient agreeable to take tab today. Will also check mag. CKD3 - at baseline, avoid nephrotoxic medications HLD - continue atorvastatin Hypothyroid - continue synthroid RLS - continue home ropinirole, ambien Depression/anxiety - continue home escitalopram GERD - continue home protonix Chronic back pain - takes tramadol at home, inpatient pain management per urology Encouraged patient to ambulate. Wean off supplemental O2 today. Dispo per urology. Addendum - Attending - Attending Attestation Date/Time: 10/22/18 0712 I personally evaluated the patient and discussed the management with Dr. Morse. I agree with the History, Examination, Assessment and Plan documented above with any addition or exceptions noted below. Patient here admitted by Urology for high renal stone burden. She underwent repeat procedure yesterday. Denies complaints and resting comfortably this morning. Continue primary mgmt per Urology. Her BP and blood sugars overall stable. Dispo per primary team.
[2018-10-22] MEDS: Escitalopram Oxalate 20 mg Tablet PO SCH (09:17)
[2018-10-22] MEDS: Lactinex Tablet PO SCH (09:18)
[2018-10-22] MEDS: Stress 600 With Zinc 1 TAB PO SCH ×2 (09:18→09:19)
[2018-10-22] MEDS: Atorvastatin Calcium 40 MG TAB PO SCH (09:18)
[2018-10-22] MEDS: Famotidine/PF 20 mg/2ml Vial SLOW IVP SCH (09:19)
[2018-10-22] MEDS: Bisoprolol Fumarate 5 MG TAB PO SCH (09:20)
[2018-10-22] MEDS: HumaLOG 300 UNITS/3 ML VIAL SC SCH (09:23)
[2018-10-22] MEDS: Insulin Glargine 45 UNITS in Pre-Filled Syringe SC SCH (09:23)
[2018-10-22] MEDS: Docusate 100 MG CAP PO SCH (09:23)
[2018-10-22 11:06] VITALS: TEMP 98.6
--- NOTE | 2018-10-22 11:59 | PRG ---
DATE OF SERVICE: 10/22/2018 SUBJECTIVE: The patient feeling better. Denies chest pain or shortness of breath. The pain is significantly improved, and she has not required any narcotics overnight, takes tramadol p.r.n. and has some at home. OBJECTIVE: VITAL SIGNS: Stable. She is afebrile. Urine output per Artis is sedrick clear. ABDOMEN: Soft, morbidly obese. No rigidity. No rebound. Her pre-existing nephrostomy tube dressing change demonstrating mild saturation pink-tinged, dressing changed. IMPRESSION AND PLAN: Ms. Ayala is a 62-year-old female with history of multiple left renal calculi, status post percutaneous nephrolithotomy, status post left nephrostogram, nephrostomy tube removal, cysto, left retrograde stent. The patient is clinically stable to be discharged. I informed the patient that we can discharge her today if she feels comfortable which she does. She has minimal discomfort and desired to proceed. Her appetite has been poor; however, she says that she is passing gas and tolerating food and request to be discharged, which is reasonable. Cardiology is cleared to be discharged. We will obtain KUB before discharge. Discontinue Artis catheter after KUB, and successful voiding trial, we will discharge. Job ID: [id number]
--- NOTE | 2018-10-22 12:53 | RAD ---
AP ABDOMINAL RADIOGRAPH: HISTORY: Post PCNL procedure. Ureteral stent placement. COMPARISON: 09/11/2018 and retrograde IVP study on 10/21/2018. FINDINGS: There has been interval removal of the left-sided nephrostomy tube. A left ureteral stent is again n oted in place. Calculus in the region of the left renal pelvis noted on the prior exam is noted read matti visualized on this exam but was seen on recent CT scan related to residual calculus in the left r enal collecting system. The bowel gas pattern is nonspecific. Limited visualized left lung base appears clear. No other int erval change. IMPRESSION: Left ureteral stent noted in place. Left renal calculi are not well visualized on this exam. POS: THOMAS
--- NOTE | 2018-10-22 15:35 | PDOC.CTH ---
Cardiology Progress Note - Subjective Doing better today. Breathing at baseline. - Objective Vital Signs Temp Pulse Ox 10/22/18 11:06 98.6 F 10/22/18 08:00 91 L 10/22/18 07:07 97.4 F L 10/22/18 04:00 98.6 F Weight 225 lb 1.471 oz 10/21/18 10/22/18 10/23/18 06:59 06:59 06:59 Intake Total 2334 2110 Output Total 3675 2200 Balance -1341 -90 - Physical Examination General/Neuro: alert & oriented x3, NAD Neck: no JVD present Lungs: CTA, unlabored respirations Heart: RRR Abdomen: NT/ND Extremities: other: (no edema) - Telemetry Telemetry Rhythm: NSR - Labs Result Diagrams: 10/22/18 04:42 10/22/18 04:42 - Assessment/Plan 1. Acute on chronic diastolic CHF, resolved. 2. Renal stones. PLAN: - Back at baseline from cardiac perspective. - May D/C anytime from cardiac perspective. - Will sign off, please call with any questions.
--- NOTE | 2018-10-23 03:58 | DIS ---
DATE OF ADMISSION: 10/17/2018 DATE OF DISCHARGE: 10/22/2018 ADMITTING DIAGNOSIS: Multiple large left renal calculi. DISCHARGE DIAGNOSIS: Multiple large left renal calculi. PROCEDURE: 1. Cysto, catheterization of the left ureter, nephrostomy tube placement, left percutaneous nephrolithotomy. 2. On October 21, cystoscopy, left retrograde, antegrade nephrostogram, nephrostomy tube removal, ureteral stent placement. INPATIENT CONSULTS: 1. Family Medicine Service for continuity of medical care. 2. Dr. Akins for fluid overload CHF. BRIEF HOSPITAL COURSE: Ms. Ayala is a 62-year-old female with history of multiple drug allergies, most of the side effect which causes nausea, emesis, who presented for evaluation of multiple large left renal calculi seen on CT scan, found incidentally on workup for chronic back pain. She has been fully informed regarding density of her stone size, location, requiring multiple surgical interventions. As she presents with a large left renal pelvic stone, I advised regarding percutaneous nephrolithotomy. We did discuss alternative options and she desired to proceed. She was fully informed regarding staged intervention as she also has left lower pole stone moiety as well. She underwent left percutaneous nephrolithotomy uneventfully. We attempted to place a left percutaneous access by Interventional Radiology day before her PCNL. However, the access was suboptimal. Due to large left renal pelvic stone, the only access that radiologist could give me was suboptimal as her posterior calyx would not opacify due to renal stone moiety. Therefore, under anesthesia with retrograde pyelogram and distention of the collecting system, Dr. Clark was able to provide me a left posterior mid pole access. Stone was found to be very hard upon laser lithotripsy with pneumatic and ultrasonic probes. We did make significant progress of a left renal pelvic stone burden as well as her mid pole stone. We will remain on followup CT scan is lower pole stone nidus, limb of renal pelvic stone extending into the upper pole, and a tiny mid pole stone. I informed the patient that we could treat these as an outpatient. She did have a fluid overload on chest x-ray, was provided Lasix 40 mg with resolution. Although, she was allergic to Levaquin causing severe nausea, emesis, was able to tolerate ciprofloxacin. The patient has been difficult to be mobile, as she would not comply with increased activity despite PT walking program. She underwent nephrostomy tube removal. Her pain did significantly improved, and on day of discharge, she has not required any narcotics for discomfort. There was minimal drainage from her nephrostomy tube site. Urine output is sedrick pink from the Artis and this was removed and she voided successfully. Disposition is to home with great family support. DISCHARGE MEDICATIONS: She is to resume her home medications. No aspirin or ibuprofen products are advised. Prescription for; 1. Ciprofloxacin 500 mg one p.o. b.i.d. for 7 days. 2. Colace 100 mg one p.o. b.i.d. p.r.n. 3. Azo htmw-lar-rxtfory. 4. VESIcare 5 mg one p.o. daily provided. She has a followup with me next , October 26, at 9:15 a.m. We will schedule elective ureteroscopy and laser lithotripsy for her residual stone burden at a later date. CONDITION: Stable. Job ID: [id number] MTDD
[2018-10-23 13:09] LABS: CA Oxalate Monohydrate 54 % (.); Color Tan (.); Comment Note: (.); Stone Weight 2160.3 mg (.); Uric Acid 43 % (.)
== END 2018-10-22 15:48 | disposition home or self-care (01) | DRG 659 ==
LOC: 3SE 10-17 11:12 → SURG A 10-18 09:24 → EDSTATUS 10-18 09:30 → IMCU/EMU 10-18 15:20
PROVIDERS: ADMIT Urology; ATTEND Urology
PROC: BT1F1ZZ Fluoroscopy of Left Kidney, Ureter and Bladder using Low Osmolar Contrast (ICD-10-PCS; principal; 2018-10-18)
PROC: 0T778DZ Dilation of Left Ureter with Intraluminal Device, Via Natural or Artificial Opening Endoscopic (ICD-10-PCS; 2018-10-18)
PROC: 0TC48ZZ Extirpation of Matter from Left Kidney Pelvis, Via Natural or Artificial Opening Endoscopic (ICD-10-PCS; 2018-10-18)
PROC: 0TC43ZZ Extirpation of Matter from Left Kidney Pelvis, Percutaneous Approach (ICD-10-PCS; 2018-10-18)
PROC: 0T9430Z Drainage of Left Kidney Pelvis with Drainage Device, Percutaneous Approach (ICD-10-PCS; 2018-10-18)
PROC: BT1F1ZZ Fluoroscopy of Left Kidney, Ureter and Bladder using Low Osmolar Contrast (ICD-10-PCS; 2018-10-18)
PROC: 0T778DZ Dilation of Left Ureter with Intraluminal Device, Via Natural or Artificial Opening Endoscopic (ICD-10-PCS; 2018-10-21)
PROC: BT1F1ZZ Fluoroscopy of Left Kidney, Ureter and Bladder using Low Osmolar Contrast (ICD-10-PCS; 2018-10-21)
PROC: 0TP5X0Z Removal of Drainage Device from Kidney, External Approach (ICD-10-PCS; 2018-10-21)
PROC: BT121ZZ Fluoroscopy of Left Kidney using Low Osmolar Contrast (ICD-10-PCS; 2018-10-21)
DX: N20.0 Calculus of kidney (principal); I50.33 Acute on chronic diastolic (congestive) heart failure; D80.4 Selective deficiency of immunoglobulin M [IgM]; I13.0 Hypertensive heart and chronic kidney disease with heart failure and stage 1 through stage 4 chronic kidney disease, or unspecified chronic kidney disease; E78.5 Hyperlipidemia, unspecified; E03.9 Hypothyroidism, unspecified; K21.9 Gastro-esophageal reflux disease without esophagitis; F32.9 Major depressive disorder, single episode, unspecified; F41.9 Anxiety disorder, unspecified; G25.81 Restless legs syndrome; E66.01 Morbid (severe) obesity due to excess calories; E11.40 Type 2 diabetes mellitus with diabetic neuropathy, unspecified; N18.3 Chronic kidney disease, stage 3 (moderate); G89.29 Other chronic pain; M54.9 Dorsalgia, unspecified; D64.9 Anemia, unspecified; E87.6 Hypokalemia; Z90.49 Acquired absence of other specified parts of digestive tract; Z87.891 Personal history of nicotine dependence; Z88.0 Allergy status to penicillin; Z88.8 Allergy status to other drugs, medicaments and biological substances; Z79.899 Other long term (current) drug therapy; Z68.36 Body mass index [BMI] 36.0-36.9, adult; Z79.4 Long term (current) use of insulin; Z90.89 Acquired absence of other organs
CPT/HCPCS: 36415; 36416; 50430; 50431; 50432; 50437; 71045; 74018; 74176; 74420; 74485; 80048; 82365; 83735; 85025; 86850; 86900; 86901; 88300; C1729; C1758; C1769; J0131; J0744; J1815; J1940; J1956; J2250; J2270; J2274; J2405; J2550; J3010; J7070; J7611; Q0162; Q0169; Q9967; S0028

== ENCOUNTER 2018-10-04 09:45 | Outpatient (CLI) | payer MEDICARE ==
[2018-10-04 10:25] LABS: Hemoglobin 12.5 g/dL (12.0-16.0); Mean Corpuscular HGB CONC 34.9 g/dL (32.0-36.0); Mean Corpuscular Hemoglobin 29.8 pg (27.0-31.0); Mean Corpuscular Volume 85.5 fL (78.0-98.0); Mean Platelet Volume 7.6 fL (7.4-10.4); Platelet Count 247 thou/uL (130-400); RBC Distribution Width 12.6 % (11.5-14.5); Red Blood Cell (RBC) Count 4.18 mill/uL (4.20-5.40); White Blood Cell (WBC) Count 6.8 thou/uL (4.8-10.8)
[2018-10-04 10:31] LABS: Prothrombin Time 13.3 SEC (12.0-14.7)
[2018-10-04 10:49] LABS: Anion Gap 10 mmol/L (10-20); BUN (Urea Nitrogen) 15 mg/dL (9.8-20.1); Calc. Creatinine Clearance 0 mL/min (70-130); Calcium 10.2 mg/dL (7.8-10.44); Carbon Dioxide 25 mmol/L (23-31); Chloride 107 mmol/L (98-107); Estimated GFR-MDRD 52; Glucose 152 mg/dL (80-115); Potassium 4.2 mmol/L (3.5-5.1); Sodium 138 mmol/L (136-145)
== END 2018-10-04 09:46 | disposition home or self-care (01) ==
LOC: LABBT 09:45
PROVIDERS: ATTEND Urology
DX: Z01.812 Encounter for preprocedural laboratory examination (principal); N20.0 Calculus of kidney
CPT/HCPCS: 80048; 81001; 85027; 85610; 85730; 87086

== ENCOUNTER 2018-11-01 13:34 | Outpatient (CLI) | payer MEDICARE ==
[2018-11-01 16:53] LABS: Hemoglobin 12.3 g/dL (12.0-16.0); Mean Corpuscular HGB CONC 33.2 g/dL (32.0-36.0); Mean Corpuscular Hemoglobin 28.1 pg (27.0-31.0); Mean Corpuscular Volume 84.7 fL (78.0-98.0); Mean Platelet Volume 7.7 fL (7.4-10.4); Platelet Count 347 thou/uL (130-400); RBC Distribution Width 13.6 % (11.5-14.5); Red Blood Cell (RBC) Count 4.36 mill/uL (4.20-5.40); White Blood Cell (WBC) Count 9.9 thou/uL (4.8-10.8)
[2018-11-01 16:59] LABS: PTT 28.8 SEC (22.9-36.1); Prothrombin Time 13.5 SEC (12.0-14.7)
[2018-11-01 17:23] LABS: Anion Gap 14 mmol/L (10-20); BUN (Urea Nitrogen) 19 mg/dL (9.8-20.1); Calc. Creatinine Clearance 0 mL/min (70-130); Calcium 9.7 mg/dL (7.8-10.44); Carbon Dioxide 23 mmol/L (23-31); Chloride 104 mmol/L (98-107); Estimated GFR-MDRD 47; Glucose 134 mg/dL (80-115); Sodium 137 mmol/L (136-145)
== END 2018-11-01 13:35 | disposition home or self-care (01) ==
LOC: LABBT 13:34
PROVIDERS: ATTEND Urology
DX: Z01.818 Encounter for other preprocedural examination (principal); N20.0 Calculus of kidney; R35.0 Frequency of micturition; E11.9 Type 2 diabetes mellitus without complications; M54.5 Low back pain; D80.4 Selective deficiency of immunoglobulin M [IgM]; E66.9 Obesity, unspecified; Z79.4 Long term (current) use of insulin
CPT/HCPCS: 80048; 81001; 85027; 85610; 85730; 87086; 93005; 93010

== ENCOUNTER 2018-11-01 15:25 | Emergency (ER) | payer MEDICARE ==
--- NOTE | 2018-11-01 16:39 | ULT ---
ULTRASOUND DOPPLER DUPLEX VENOUS LEFT UPPER EXTREMITY: DATE: 11/01/2018 HISTORY: Left upper forearm pain one week after removal of IV catheter. In 62-year-old female TECHNIQUE: Grayscale, color-flow, and spectral analysis, of the left internal jugular, subclavian, axillary, bra chial, cephalic, basilic, radial, and ulnar, veins. Compression applied to all veins except the subclavian. FINDINGS: In the area of pain, there is incomplete compressibility and mural thickening of the cephalic vein in the forearm, from slightly distal to elbow to slightly proximal to wrist. There is blood flow within it. There is no DVT in the rest of the interrogated veins. IMPRESSION: Positive for nonocclusive superficial venous thrombosis of the left cephalic vein in the forearm only .
== END 2018-11-01 19:41 | disposition home or self-care (01) ==
LOC: ERS 15:25
DX: I82.612 Acute embolism and thrombosis of superficial veins of left upper extremity (principal); E11.9 Type 2 diabetes mellitus without complications; I10 Essential (primary) hypertension; F32.9 Major depressive disorder, single episode, unspecified; E03.9 Hypothyroidism, unspecified; E78.00 Pure hypercholesterolemia, unspecified; Z79.4 Long term (current) use of insulin; Z87.442 Personal history of urinary calculi; Z79.899 Other long term (current) drug therapy

== ENCOUNTER 2018-11-15 08:05 | Day surgery (SDC) | payer MEDICARE ==
[2018-11-01 14:59] VITALS: BMI 35.5
[2018-11-15] MEDS ORDERED: Fentanyl 100 MCG/2 ML VIAL ONE (09:24)
[2018-11-15] MEDS ORDERED: Iothalamate Meglumine 60% 50 ML VIAL FS ONE (11:43)
--- NOTE | 2018-11-15 14:04 | RAD ---
EXAM: XR IVP Retrograde PROVIDED CLINICAL HISTORY: Left renal calculus and left ureteral stent replacement COMPARISON: 10/21/2018. FINDINGS: 5 intraoperative fluoroscopic images of the left abdomen are obtained. Initial image demonstrates a l eft ureteral stent in place. There is a calcification seen overlying the midportion right kidney as well as at the inferior pole related to renal calculi largest in the region of the left renal pelvis. Subsequent images demonstrate removal of the ureteral stent with a catheter and guidewire in place. Final image demonstrates left ureteral stent in place. There is motion on this image which aparicio its adequate evaluation. However, images obtained prior to final image does demonstrate overall decrease in burden of calculi within the left renal collecting system. Correlation with intraoperativ e findings is recommended.
[2018-11-15] MEDS ORDERED: Phenazopyridine HCl 97.5 MG TABLET ONE (14:38)
[2018-11-15] MEDS ORDERED: Oxybutynin 5 MG TAB ONE (14:38)
--- NOTE | 2018-11-16 11:04 | OP ---
DATE OF PROCEDURE: 11/15/2018 PREOPERATIVE DIAGNOSES: A 62-year-old female with history of left staghorn calculi, status post percutaneous nephrolithotomy, residual stone nidus and followup CT demonstrating 1.2 x 1 cm left mid to upper pole renal calculi, left 8 mm lower pole calculi. POSTOPERATIVE DIAGNOSIS: A 62-year-old female with history of left staghorn calculi, status post percutaneous nephrolithotomy, residual stone nidus and followup CT demonstrating 1.2 x 1 cm left mid to upper pole renal calculi, left 8 mm lower pole calculi. PROCEDURES PERFORMED: Cystoscopy, left retrograde pyelogram, 6 x 26 double-J ureteral stent exchange, flexible ureteroscopy, pyeloscopy, laser lithotripsy of large left renal stone burden, basket extraction of stone fragments. ANESTHESIA: General. COMPLICATIONS: None apparent. SPECIMENS: Stone for chemical analysis. INDICATIONS FOR PROCEDURE AND HISTORY: Ms. Ayala is a 62-year-old morbidly obese female with history of large left stone burden, status post PCNL. As she has an indwelling ureteral stent, the nephrostomy tube was removed and residual stone nidus, which was unapproachable with percutaneous access, presents for ureteroscopy, laser lithotripsy of residual stone nidus. We discussed alternative options such as ESWL, staged ureteroscopy, laser lithotripsy, and desired to proceed with ureteroscopy and laser lithotripsy. Risks and complications and indications reviewed with her in detail including, but not limited to, bleeding, pain, infection, injury to adjacent organs, urosepsis. Injury to ureter, bladder, kidney was reviewed with her in detail, and she desired to proceed. DESCRIPTION OF PROCEDURE: After an informed consent was signed, the patient was taken to the operating room, placed in a dorsal lithotomy position with the genital area prepped and draped in the usual surgical sterile fashion. Ciprofloxacin was provided preoperatively. We performed a cystoscope with a 21-St Helenian cystoscope , and a previously placed ureteral stent was removed to the level of the meatus. A 0.35 Sensor wire was then passed through the indwelling ureteral stent and the stent completely removed. A 10-St Helenian dual-lumen access sheath was then passed, and a retrograde pyelogram was performed with the wire in situ demonstrating opacification of the collecting system demonstrating a left renal pelvic to upper pole calcific nidus with no evidence of hydronephrosis. At this time, a second working wire 0.035 Super Stiff was passed through the dual-lumen access sheath. The access sheath was then removed, and we secured the safety wire, and with the working Super Stiff wire, passed a 13/15-St Helenian x 28 cm navigator with ease, which passed without significant issues. At this time, a flexible ureteroscopy and pyeloscopy were performed with a digital, disposable ureteroscope. The scope was passed over the guidewire, and the guidewire was subsequently removed. Pyeloscopy demonstrated a large left renal stone burden and the mid to lower pole stone burden consistent with CT. Using 200 micron ball-tip laser fiber at 1 joules, 20 chew, we laser lithotripsied the stone into multiple tiny fragment debris, most of the stone dusted into dust-like debris. We made our way over the laser lithotripsying the upper pole, mid and lower pole stone. The lower pole stone fragments were difficult to basket as the residual nidus given the angle. Therefore, we laser lithotripsied as much as we could of the residual stone burden in the left upper and lower pole into tiny fragments. We basket extracted the larger nidus and extracted them successfully atraumatically through the sheath. We spent a significant amount of time laser lithotripsying the large stone debris in the upper pole, as this was the largest stone nidus. At the end of the procedure, what remained appeared to be what she would likely pass on her own. The largest stone debris appeared to be approximately about 2 to 3 mm, most of which were dust-like stone debris. Since the stones were very large especially in the upper pole, visualization became somewhat suboptimal as there was significant amount of dust-like debris within the collecting system. Surveying of the collecting system demonstrated no evidence of trauma. The ureter was surveyed, which demonstrated no evidence of stone nidus or ureteral mucosa injury of concern. The navigator was subsequently removed. Then, a 6 x 26 double-J ureteral stent was passed over the safety wire and the wire completely removed with good coil in the kidney and bladder. What is left in the kidney will most likely pass with aggressive fluids. However, given her stone nidus and degree of stone burden, I will obtain a CT stone protocol day before her tentative cysto stent pull date in 2-week interval. CT stone protocol to be obtained on November 29 around 9 a.m., if CT demonstrates significant improvement of stone burden, we will perform cysto stent pull under local on November 30. She is discharged with tramadol 50 mg , #30, one to two p.o. q.6 to 8 hours p.r.n.; VESIcare 5 mg, #30; ciprofloxacin 1 p.o. b.i.d. for 7 days, then one p.o. b.i.d. morning of her cysto stent pull, November 30. Colace #30 provided. Pending review of CT, cysto stent pull versus staged ureteroscopy and pyeloscopy would be advised. Job ID: [id number] MTDD
== END 2018-11-15 16:25 | disposition home or self-care (01) ==
LOC: SDC 08:05
PROVIDERS: ATTEND Urology
PROC: 0TF48ZZ Fragmentation in Left Kidney Pelvis, Via Natural or Artificial Opening Endoscopic (ICD-10-PCS; principal; 2018-11-15)
PROC: 0T778DZ Dilation of Left Ureter with Intraluminal Device, Via Natural or Artificial Opening Endoscopic (ICD-10-PCS; 2018-11-15)
DX: N20.0 Calculus of kidney (principal); E78.5 Hyperlipidemia, unspecified; I10 Essential (primary) hypertension; G25.81 Restless legs syndrome; E07.9 Disorder of thyroid, unspecified; E11.40 Type 2 diabetes mellitus with diabetic neuropathy, unspecified; K21.9 Gastro-esophageal reflux disease without esophagitis; F32.9 Major depressive disorder, single episode, unspecified; F41.9 Anxiety disorder, unspecified; D80.4 Selective deficiency of immunoglobulin M [IgM]; G89.29 Other chronic pain; M54.9 Dorsalgia, unspecified; E66.01 Morbid (severe) obesity due to excess calories; Z68.35 Body mass index [BMI] 35.0-35.9, adult; Z87.891 Personal history of nicotine dependence; Z79.4 Long term (current) use of insulin; Z79.899 Other long term (current) drug therapy; Z88.0 Allergy status to penicillin; Z88.1 Allergy status to other antibiotic agents; Z88.5 Allergy status to narcotic agent
CPT/HCPCS: 52356; 74420; 82365; 82962; 88300; C1758; C1769; 36416; J0131; J0744; J3010

== ENCOUNTER 2018-11-29 08:01 | Outpatient (CLI) | payer MEDICARE ==
--- NOTE | 2018-11-29 09:31 | CT ---
CT STONE PROTOCOL: HISTORY: Renal calculi. COMPARISON: 10/19/2018 FINDINGS: There has been interval removal of the left-sided nephroureteral catheter. A left ureteral stent has been placed in the interim. Residual calculi are seen in the left kidney, the largest is in the inf erior pole, measuring 7 mm. Stone burden has decreased in the left kidney. No calculi are seen leona g the course of the left ureteral stent. No significant perinephric hematoma is identified. A small fat-containing umbilical hernia is again noted. Dependent changes in the lung bases have resolved in the interim. No free air or free fluid is seen in the abdomen or pelvis. No calculi are seen in the right kidney, right ureter or the urinary bladd er. No calcific gallstones are noted. A normal appearing appendix is present. There are degenerati ve changes in the spine. Vascular calcifications are present without evidence of aneurysmal dilatati on of the abdominal aorta. No significant hydroureteronephrosis is present on either side. IMPRESSION: 1. Interval decrease in calculus burden in the left kidney. 2. Removal of the left nephroureteral catheter and placement of a left ureteral stent since 10/20/19 19. POS: OFF
== END 2018-11-29 08:02 | disposition home or self-care (01) ==
LOC: BICCT 08:01
PROVIDERS: ATTEND Urology
DX: N20.0 Calculus of kidney (principal)
CPT/HCPCS: 74176

== ENCOUNTER 2019-02-12 13:00 | Outpatient (CLI) | payer MEDICARE ==
--- NOTE | 2019-02-12 14:49 | MRI ---
MR OF THE THORACIC SPINE WITHOUT CONTRAST INDICATION: History of chronic back pain in the upper thoracic spine TECHNIQUE: Multiplanar multisequence MR images were obtained of the thoracic spine without contrast. Spine count series was provided. COMPARISON: None FINDINGS: Bone marrow signal intensity: Normal Spinal alignment: Normal Spinal cord: Normal signal intensity and contour. Paravertebral soft tissues: There is a small T2 hyperintense, T1 hypointense lesion involving the pos terior left mid kidney measuring 1.5 cm suspicious for small cyst. This was was present on the comparison CT the abdomen and pelvis dated 11/29/2018. Vertebral levels: T1-T2: No appreciable central canal or neural foraminal narrowing is evident. T2-T3: No appreciable central canal or neural foraminal narrowing. T3-T4: No appreciable central canal or neural foraminal narrowing.. T4-T5: No appreciable central canal or neural foraminal narrowing. T5-T6: No appreciable central canal or neural foraminal narrowing. T6-T7: Small broad-based disc bulge T7-T8: Small broad-based disc bulge T8-T9: Small broad-based disc bulge T9-T10: Small broad-based disc bulge T10-T11: Small broad-based disc bulge T11-T12: Small broad-based disc bulge T12-L1: No appreciable central canal or neural foraminal narrowing. Additional findings: None. IMPRESSION: 1. Mild spondylosis of the thoracic spine without appreciable central canal or neural foraminal narro wing. 2. Left renal cyst
--- NOTE | 2019-02-12 14:57 | MRI ---
MRI Lumbar Spine Noncontrast: HISTORY: Chronic back pain from level of the upper thoracic spine to the lower back. History of scoliosis and degenerative disc disease. COMPARISON: None FINDINGS: There is an increased T2-weighted signal intensity lesion in the superior pole left kidney measuring 1.2 cm which is not well characterized or evaluated on this examination. However, a hypodense lesion was seen on CT abdomen and pelvis on 11/29/2018 as well as on study on 08/25/2018. Remainder of the retroperitoneal structures demonstrate a grossly normal nonenhanced MRI appearance. Conus medullaris is normal in morphology and terminates at the L1 level. Endplate degenerative changes are seen at the L4-5 level. Multilevel degenerative changes are seen in the lumbar spine. There is mild right convex scoliosis. T11-12: There is a mild broad-based disc bulge resulting in effacement of the ventral subarachnoid sp rebecca. There is mild right-sided neural foraminal narrowing. The left neural foramen is patent. T12-L1l: There is no disc bulge or disc herniation. Central spinal canal and neural foramina are coleman nt. L1-2: Mild broad-based disc osteophyte complex is present. No significant central canal or neural for aminal narrowing. L2-3: There is loss of intervertebral disc height. A broad-based disc osteophyte complex is present. Facet hypertrophic changes are noted. Mild to moderate narrowing of the central spinal canal is present. Mild left-sided neural foraminal narrowing is noted. The right neural foramen is patent. L3-4: There is loss of intervertebral disc height. Broad-based disc osteophyte complex is present. Fa cet degenerative changes are noted. There is moderate narrowing of the central spinal canal. The right neural foramen is patent, but there is [id number] left-sided neural foraminal narrowing. L4-5: There is severe loss of intervertebral disc height with prominent endplate degenerative changes at this level. A broad-based disc osteophyte complex is present. Facet degenerative changes are noted. There is mild narrowing of the central spinal canal. Minimal left and [id number] right-s ided neural foraminal narrowing is present. L5-S1: There is loss of intervertebral disc height. There is broad-based disc osteophyte complex with small central disc protrusion. This central disc protrusion and disc bulge does encroach on and contacts the bilateral traversing S1 nerve roots. There is slight flattening the anterior aspect of t he thecal sac. Moderate to severe bilateral neural foraminal narrowing is noted. IMPRESSION: 1. Multilevel degenerative changes seen throughout the lumbar spine with multilevel neural foraminal narrowing greatest at the L5-S1 level where there is moderate to severe bilateral neural foraminal narrowing as well as encroachment on the traversing bilateral S1 nerve roots secondary to disc osteop hyte complex and central disc protrusion. 2. Increased T2-weighted signal intensity lesion left kidney not well characterized or evaluated on t his exam. Hypodense lesion was seen in the left kidney on prior CT abdomen on 08/25/2018.
== END 2019-02-12 13:01 | disposition home or self-care (01) ==
LOC: SCSMRI 13:00
PROVIDERS: ATTEND Family Medicine
DX: M41.85 Other forms of scoliosis, thoracolumbar region (principal); M47.896 Other spondylosis, lumbar region; M47.814 Spondylosis without myelopathy or radiculopathy, thoracic region; M48.07 Spinal stenosis, lumbosacral region; N28.9 Disorder of kidney and ureter, unspecified; N28.1 Cyst of kidney, acquired
CPT/HCPCS: 72146; 72148